=== PATIENT | female | born 1935 | race Caucasian/White ===

== ENCOUNTER → 2017-03-23 | Outpatient (CLI) | payer MEDICARE ==
[~2017-03-23] VITALS: Ht 154.9 cm; Wt 52.6 kg
[~2017-03-23] MED LIST: ASP81TEC PO; ASPI-983 PO; CATHETER FLUSH 10 ML SYR IV PRN; CEFU500T5 PO; CLOP75TA28 PO; DIGO125T PO; DILT120T3 PO; DILT180C PO; ENXP80I.8 SC; LISI40TA PO; METF500T4 PO; PRAV40TA2 PO; REGADENOSON 0.4 MG/5 ML SYR (LEXISCAN) IV ONE; SIMV20TA3 PO; WRF2T PO
[2017-03-23 09:16] VITALS: BP 181/90
--- NOTE | 2017-03-23 13:21 | STRESS TEST ---
DATE OF SERVICE: 03/23/2017 LEXISCAN MYOVIEW STRESS TEST REFERRING PHYSICIAN: Dr. Michaelle Rivas Baseline heart rate is 65, baseline blood pressure 181/90. Baseline EKG is ventricular paced rhythm alternating with sinus rhythm and right bundle branch block. In summary, the patient was injected with 10.14 mCi of technetium-99 Myoview and the resting images were obtained. Then the patient received 0.4 mg of Lexiscan followed by 32.1 mCi of technetium-99 Myoview. Throughout the test, EKG was showing nondiagnostic changes. The resting and stress images were reviewed and compared in the short axis, horizontal long axis and vertical long axis views. Review of the images showed breast attenuation with no significant ischemic. SSS is 4. SDS 2. TID value is increased of 1.23. On the gaited images, the left ventricle appeared to be normal size. Calculated ejection fraction is 64%. CONCLUSION: 1. The patient tolerated Lexiscan well. 2. Baseline EKG changes with alternating sinus rhythm and ventricular paced rhythm. 3. Transient ischemic dilatation with TID value 1.23. 4. Breast attenuation with no significant ischemia. 5. Normal left ventricular size with normal contractility. Calculated ejection fraction 64%. Job ID: [id number] DocumentID: [id number] Dictated Date: 03/23/2017 12:09:15 Fiberglass Auto Body Repairer Date: 03/23/2017 12:53:42 Dictated By: AJ CONKLIN MD
== END ==
LOC: CARD 08:03
PROVIDERS: ATTEND Internal Medicine Cardiovascular Disease
DX: I35.1 Nonrheumatic aortic (valve) insufficiency (principal); E78.2 Mixed hyperlipidemia; I10 Essential (primary) hypertension; I27.2 Other secondary pulmonary hypertension; I49.5 Sick sinus syndrome; E11.9 Type 2 diabetes mellitus without complications
CPT/HCPCS: 78452; 93017

== ENCOUNTER 2017-04-01 06:55 | Day surgery (SDC) | payer MEDICARE ==
[~2017-04-01] VITALS: Ht 154.9 cm; Wt 52.5 kg
[2017-04-01] VITALS (10 sets, daily range): BP systolic 134–177; BP diastolic 69–96
[~2017-04-01 06:55] MED LIST changes: -ASPI-983 PO; -CATHETER FLUSH 10 ML SYR IV PRN; -CLOP75TA28 PO; -DILT120T3 PO; -LISI40TA PO; -METF500T4 PO; -PRAV40TA2 PO; -REGADENOSON 0.4 MG/5 ML SYR (LEXISCAN) IV ONE
[2017-04-01] MEDS ORDERED: LIDOCAINE 1% INJ 20 ML (XYLOCAINE) VIAL ONE (07:03)
[2017-04-01] MEDS ORDERED: NS IV 1000 ML 1,000 ML ONE (07:03)
[2017-04-01] MEDS ORDERED: HEParin (CATH LAB) 2,000 ML IV ONE (07:04)
[2017-04-01] MEDS ORDERED: NS IV 1000 ML 1,000 ML IV SCH (07:30)
[2017-04-01 07:37] LABS: BILIRUBIN,URINE NEGATIVE (NEGATIVE); KETONES,URINE NEGATIVE (NEGATIVE); LEUKOCYTE ESTERASE ,URINE 2+ (NEGATIVE); NITRITE,URINE NEGATIVE (NEGATIVE); PH,URINE 6.5 (5-9); PROTEIN,URINE 2+ (NEGATIVE); UROBILINOGEN,URINE NORMAL (NORMAL)
[2017-04-01 07:40] LABS: MEAN PLATELET VOLUME 10.4 FL (7.4-10.4); RED BLOOD COUNT 4.78 10^6/uL (4.35-5.85); RED CELL DISTRIBUTION WIDTH 13.7 % (10.0-14.5); WHITE BLOOD COUNT 8.4 10^3/uL (4.3-11.0)
[2017-04-01 07:47] LABS: INR 1.3 (0.8-1.4); PROTHROMBIN TIME PATIENT 16.1 SEC (12.2-14.7)
[2017-04-01 07:55] LABS: SQUAMOUS EPITHELIAL CELL,UR 0-2 /HPF
[2017-04-01 07:56] LABS: ALBUMIN 4.3 G/DL (3.2-4.5); CALCIUM 9.4 MG/DL (8.5-10.1); CREATININE SERUM 1.09 MG/DL (0.60-1.30); TOTAL PROTEIN 6.9 G/DL (6.4-8.2)
[2017-04-01] MEDS ORDERED: LISI40TA PO (07:57)
[2017-04-01] MEDS ORDERED: METF500T4 PO (07:57)
[2017-04-01] MEDS ORDERED: DILT120T3 PO (07:57)
[2017-04-01] MEDS ORDERED: PRAV40TA2 PO (07:57)
[2017-04-01] MEDS ORDERED: MIDAZOLAM 5 MG/5 ML (VERSED) VIAL ONE (07:58)
[2017-04-01] MEDS ORDERED: fentaNYL INJECTION 100 MCG/2 ML AMP ONE (07:58)
--- NOTE | 2017-04-01 08:18 | Cardiac Procedure Note-CS/ASA ---
Pre-Procedure Note Pre-Op Procedure Note H&P Reviewed The H&P was reviewed, patient examined and no changes noted. Date H&P Reviewed: April 01, 2017 Time H&P Reviewed: 08:17 Conscious Sedation Pre-Proced Time Reviewed: 08:18 ASA Class: 3 Airway Mallampati Classification: ([place] appropriate class) I. II. III, IV Lungs Heart ASA score ASA 1: a normal healthy patient ASA 2: a patient with a mild systemic disease (mid diabetes, controlled hypertension, obesity x ASA 3: a patient with a severe systemic disease that limits activity (angina , COPD, prior Myocardial infarction) ASA 4: a patient with an incapacitating disease that is a constant threat to life (CHF, renal failure) ASA 5: a moribund patient not expected to survive 24 hrs. (ruptured aneurysm) ASA 6: a declared brain patient whose organs are being harvested. For emergent operations, add the letter E after the classification Grade 3 Sedation Plan: Analgesia, Amnesia, Plan communicated to team members, Discussed options with patient/fam, Discussed risks with patient/fam Note The patient is an appropriate candidate to undergo the planned procedure, sedation, and anesthesia. The patient immediately re-assessed prior to indication. AJ CONKLIN MD April 01, 2017 08:18
[2017-04-01] MEDS ORDERED: HEParin 1000 UNIT/ML (10ML VIAL) FOR BOLUS ONE (08:24)
[2017-04-01] MEDS ORDERED: NITROGLYCERIN DRIP 25 MG/D5W 250 ML IV ONE (08:25)
--- NOTE | 2017-04-01 08:31 | Diagnostic Imaging Report ---
INDICATION: Aortic insufficiency Frontal chest obtained at 733 hrs am, and compared with 08/19/10. Cardiomegaly is noted, with significant increase in cardiac size compared to the prior study. The aorta is mildly tortuous. Pacemaker device is unchanged. There is no acute infiltrate or pneumothorax or pleural fluid. IMPRESSION: Cardiomegaly is present which has significantly increased compared with 08/19/10. There is no acute infiltrate or pneumothorax or pleural fluid. Pacemaker is unchanged. Dictated by: Dictated on workstation # [id number]
[2017-04-01] MEDS ORDERED: CLOPIDOGREL 300 MG (PLAVIX) TABLET PO ONE (08:38)
[2017-04-01] MEDS ORDERED: ASPIRIN 81 MG CHEW (CHILDREN'S ASA) ONE ×2 (08:39→08:48)
[2017-04-01] MEDS ORDERED: PATIENT MAY USE OWN MEDS, ALL PO SCH (08:45)
[2017-04-01] MEDS ORDERED: DIGOXIN 0.125 MG (LANOXIN) TAB PO SCH (09:00)
[2017-04-01] MEDS: NS IV 1000 ML 1,000 ML IV SCH ×2 (09:20→19:10)
[2017-04-01] MEDS ORDERED: DILTIAZEM 120 MG (CARDIZEM CD) CAP PO SCH (09:58)
[2017-04-01] MEDS ORDERED: lisINopril 20 MG (ZESTRIL) TAB PO SCH (10:00)
[2017-04-01] MEDS: CLOPIDOGREL 75 MG (PLAVIX) TABLET PO SCH (14:58)
[2017-04-01] MEDS: ASPIRIN E.C. 81 MG (ECOTRIN) TAB PO SCH (15:02)
[2017-04-01] MEDS: DILTIAZEM 120 MG (CARDIZEM CD) CAP PO SCH (15:10)
[2017-04-01] MEDS: LISINOPRIL 40MG TABLET PO SCH (15:10)
[2017-04-01] MEDS ORDERED: warFARin 2 MG (COUMADIN) TAB PO SCH (18:00)
--- NOTE | 2017-04-01 18:23 | CARDIAC CATHETERIZATION ---
DATE OF SERVICE: 04/01/2017 CARDIAC CATHETERIZATION REFERRING PHYSICIAN: Dr. Michaelle Rivas. BRIEF HISTORY: The patient is an 81-year-old lady with history of coronary artery disease, sick sinus syndrome, aortic valve regurgitation. She has an abnormal stress test with transient ischemic dilatation. She was scheduled for left heart catheterization, possible PTCA. PROCEDURE NOTE: After explaining the procedure to the patient, all pros or cons were explained, all questions were answered. The patient signed a consent, then she was placed on the cardiac catheterization laboratory. Right groin was prepped in sterile fashion. Local anesthesia applied to the right groin. A 6-Macedonian sheath was placed in the right femoral artery. Combination of right and left Connor catheter were used to access the right and left coronary system. Multiple views were obtained. Pigtail catheter advanced to the left ventricular cavity. Pressure was measured. Pullback LV to aorta was done. At that time, I decide to proceed with percutaneous intervention of the right coronary artery. The patient receive 5000 unit of heparin. FR guide was advanced to the right coronary artery. BMW wire was advanced in the right coronary artery. The patient has 95% stenosis in the mid right coronary artery. Pre-dilatation using 3.0 x 15 mm Emerge balloon. Then I positioned XIENCE Alpine stent 3.5 x 18 mm carefully, expanded to 3.6 mm under 12 atmosphere. Angiogram showed excelled results, no residual stenosis. At the end of the procedure, sheath was removed. Mynx device deployed, hemostasis achieved. TOTAL CONTRAST USED: 55 mL. TOTAL RADIATION DOSE: 254 mGy. FINDINGS: HEMODYNAMICS: LV pressure 121/9 and diastolic pressure of 9. Aortic pressure 121/47, mean of 73, no significant gradient across the aortic valve. ANATOMY: 1. Left main coronary artery is moderate in size with 40% stenosis in the distal left main, nonobstructive disease. 2. Left anterior descending artery is moderate in size with slow flow in the LAD due to small vessel disease. 3. Left circumflex artery is moderate in size with mild disease, nonobstructive disease. 4. Right coronary artery has eccentric plaque with 95% stenosis in the mid right coronary artery. Successful balloon angioplasty, then stent deployment of XIENCE Alpine drug eluting stent 3.5 x 15 mm expanded to 3.6 mm with excellent results. No residual stenosis. There is proximal right coronary artery 30% stenosis and distal 30% stenosis, nonobstructive disease that is treated medically. 5. Left ventriculogram was not done. Pressure was measured. The patient has normal LVEDP. IN CONCLUSION: 1. A 95% stenosis in the mid right coronary artery, successful balloon angioplasty, the stenting using XIENCE Alpine stent 3.5 x 15 mm expanded to 3.6 mm with excellent results. The proximal and distal right coronary artery has 30% stenosis, nonobstructive disease. 2. A 40% stenosis in the distal left main, nonobstructive disease. 3. Small vessel disease in the LAD with slow flow, nonobstructive disease. 4. Normal left ventricular end diastolic pressure. DISCUSSION AND RECOMMENDATION: The patient was bolused with aspirin and Plavix. She will continue on triple medication with aspirin, Plavix and Coumadin at this point. FINAL DIAGNOSES: 1. Coronary artery disease. 2. Sick sinus syndrome. 3. Hypertension. 4. Hyperlipidemia. Job ID: [id number] DocumentID: [id number] Dictated Date: 04/01/2017 08:42:52 Investor Relations Analyst Date: 04/01/2017 12:32:32 Dictated By: AJ CONKLIN MD
[2017-04-01] MEDS ORDERED: PRAVASTATIN 40 MG PO SCH (21:00)
[2017-04-02] VITALS: BP 160/81
[2017-04-02 03:48] LABS: MEAN PLATELET VOLUME 10.8 FL (7.4-10.4); RED BLOOD COUNT 3.88 10^6/uL (4.35-5.85); RED CELL DISTRIBUTION WIDTH 13.5 % (10.0-14.5); WHITE BLOOD COUNT 7.4 10^3/uL (4.3-11.0)
[2017-04-02 04:00] VITALS: BP 157/81
[2017-04-02 04:02] LABS: ANION GAP 9 MMOL/L (5-14); BLOOD UREA NITROGEN 13 MG/DL (7-18); BUN/CREATININE RATIO 16; CALCIUM 8.5 MG/DL (8.5-10.1); CARBON DIOXIDE 21 MMOL/L (21-32); CHLORIDE 109 MMOL/L (98-107); CREATININE SERUM 0.81 MG/DL (0.60-1.30); GFR ESTIMATED > 60; GLUCOSE 155 MG/DL (70-105); POTASSIUM 3.8 MMOL/L (3.6-5.0); SODIUM 139 MMOL/L (135-145)
[2017-04-02] MEDS: NS IV 1000 ML 1,000 ML IV SCH (04:57)
[2017-04-02 08:00] VITALS: BP 166/70
[2017-04-02] MEDS ORDERED: CLOP75TA28 PO (08:00)
[2017-04-02] MEDS ORDERED: ASPI-983 PO (08:00)
--- NOTE | 2017-04-02 08:01 | Discharge Inst-Post CATH ---
Discharge Inst-CATH Post Cardiac Cath D/C Inst Follow Up/Plan Hold metformin for 48 hours PT/INR next week Appointment with Dr. Comer's office in 2-4 weeks CARDIAC CATH DISCHARGE INSTRUCTIONS *Hold Metformin for 48 hours post heart cath. ACTIVITY * Go Home directly and rest. * Limit activity of the leg (or wrist if it was used) for 7 days including aerobics, swimming, jogging, bicycling, etc. * Restrict stair-climbing for 7 days if possible, if not, climb up with your non -cath leg, then bring together on the same step. * Avoid lifting, pushing, pulling or excessive movement of the affected extremity for 7 days. * Customary sexual activity may be resumed after 2 days-use caution not to use a position that strains or causes pain to the affected extremity. * No driving for 24 hours. * NO SMOKING. * Avoid straining for bowel movements for 7 days. * Gentle walking on level ground is allowed. * Returning to work will depend on the type of procedure and the results. Your doctor will discuss this with you. CALL YOUR DOCTOR FOR ANY OF THE FOLLOWING: *If bleeding from the puncture site occurs- Apply gentle pressure to site with clean cloth and call your doctor or EMS. * If a knot or lump forms under the skin, increases in size, or causes pain. * If bruising appears to be worsening or moving further down your leg instead of disappearing. * Temperature above 101 F. CARE OF YOUR GROIN INCISION; * Bruising or purple discoloration of the skin near the puncture site is common. * You may shower only, no bathtub bathing for 5 days. Be careful to avoid slipping as your leg may feel stiff. * If a closure device was used on your femoral artery, please see the attached guide regarding care of the device and your leg. * REMOVE the dressing from your groin the next day after your procedure in the shower. CARE OF YOUR WRIST INCISION; * Bruising or purple discoloration of the skin near the puncture site is common. * You may shower. * DO NOT submerge wrist. * Remove dressing in 24 hours. AJ COMER MD April 02, 2017 08:01
--- NOTE | 2017-04-02 08:03 | Cardiology Progress Note ---
Subjective Subjective/Events-last exam patient is feeling well, groin is healing well. Denied any chest pain or shortness of breath Review of Systems General: No Chills, No Night Sweats, No Fatigue, No Malaise, No Appetite, No Other HEENT: No Head Aches, No Visual Changes, No Eye Pain, No Ear Pain, No Dysphasia , No Sinus Congestion, No Post Nasal Drip, No Sore Throat, No Other Pulmonary: No Dyspnea, No Cough, No Pleuritic Chest Pain, No Other Cardiovascular: No: Chest Pain, Edema, Lt Headedness, Orthopnea, Other, Palpitations, Paroxysmal Noc. Dyspnea Objective-Cardiology Exam Last Set of Vital Signs Vital Signs 04/02/17 04:00 Temp 98.6 Pulse 65 Resp 18 B/P (MAP) 157/81 Pulse Ox 93 O2 Delivery Room Air Capillary Refill : Less Than 3 Seconds I&O Intake and Output 04/02/17 00:00 Intake Total 1480 ml Balance 1480 ml Intake Oral 480 ml IV Total 1000 ml # Voids 2 General: Alert, Oriented X3, Cooperative HEENT: Atraumatic, PERRLA Neck: Supple, No JVD, No Thyromegaly Lungs: Clear to Auscultation, Normal Air Movement Heart: Regular Rate, Normal S1, Normal S2, No Murmurs Abdomen: Normal Bowel Sounds, Soft, No Tenderness, No Hepatosplenomegaly, No Masses Extremities: No Clubbing, No Cyanosis, No Edema, Normal Pulses, No Tenderness/ Swelling Skin: No Rashes, No Breakdown, No Significant Lesion Neuro: Normal Gait, Normal Speech, Strength at 5/5 X4 Ext, Normal Tone, Sensation Intact Psych/Mental Status: Mental Status NL, Mood NL Results Lab Laboratory Tests 04/02/17 03:35 A/P-Cardiology Admission Diagnosis coronary artery disease Hypertension Hyperlipidemia Diabetes mellitus Assessment/Plan coronary artery disease status post stent to the right coronary artery Hypertension Hyperlipidemia Diabetes mellitus Patient was educated in length about condition, discussed ALL treatment, educated in length about taking aspirin, Plavix and Coumadin at the same time, monitoring INR closely. Holding metformin for 48 hours. Educated about post catheter care AJ CONKLIN MD April 02, 2017 08:03
[2017-04-02] MEDS: LISINOPRIL 40MG TABLET PO SCH (08:33)
[2017-04-02] MEDS: ASPIRIN E.C. 81 MG (ECOTRIN) TAB PO SCH (08:33)
[2017-04-02] MEDS: CLOPIDOGREL 75 MG (PLAVIX) TABLET PO SCH (08:33)
[2017-04-02] MEDS: DILTIAZEM 120 MG (CARDIZEM CD) CAP PO SCH (08:34)
[2017-04-02] MEDS ORDERED: DIGOXIN 0.125 MG (LANOXIN) TAB PO SCH (09:00)
[2017-04-02 09:10] VITALS: BP 166/70
== END 2017-04-02 09:15 | disposition home or self-care (01) ==
LOC: CATH 06:55 → ICU 09:20 → CATH 04-02 09:15
PROVIDERS: ATTEND Internal Medicine Cardiovascular Disease
DX: R94.39 Abnormal result of other cardiovascular function study (principal); I25.10 Atherosclerotic heart disease of native coronary artery without angina pectoris; I49.5 Sick sinus syndrome; I35.1 Nonrheumatic aortic (valve) insufficiency; I10 Essential (primary) hypertension; I48.0 Paroxysmal atrial fibrillation; E11.9 Type 2 diabetes mellitus without complications; E78.5 Hyperlipidemia, unspecified; Z79.01 Long term (current) use of anticoagulants; Z79.899 Other long term (current) drug therapy; Z79.84 Long term (current) use of oral hypoglycemic drugs; Z95.0 Presence of cardiac pacemaker
CPT/HCPCS: 36415; 71010; 80048; 80053; 80061; 81000; 85027; 85347; 85610; 85730; 87081; 87088; 93005; 93458

== ENCOUNTER 2017-04-04 21:02 | Emergency (ER) | payer MEDICARE ==
[~2017-04-04] VITALS: Ht 154.9 cm; Wt 52.0 kg
[~2017-04-04 21:02] MED LIST changes: +ASPI-983 PO; +CLOP75TA28 PO; +DILT120T3 PO; +LISI40TA PO; +METF500T4 PO; +PRAV40TA2 PO
--- NOTE | 2017-04-04 21:28 | ED Lower Extremity ---
General Stated Complaint: RECENT HEART SURGERY - SWELLING ON AREA Source: patient Exam Limitations: no limitations History of Present Illness Time seen by provider: 21:26 Initial Comments To ER with bruising and swelling to the right groin. Patient had an outpatient cardiac catheterization done here on . She was discharged from the hospital on . She is on Plavix, aspirin, warfarin. She was instructed to come back to the hospital for increasing bruising. She denies any abdominal pain, palpitations shortness of breath or lightheadedness. However, she does have some bruising to the medial aspect of the right thigh that terminated at the mid right thigh yesterday. Today it extends distally down towards the knee. Onset: last week Severity: moderate Pain/Injury Location: right knee Method of Injury: other (cardiac catheterization) Allergies and Home Medications Allergies Coded Allergies: Sulfa (Sulfonamide Antibiotics) (Verified Allergy, Unknown, 04/01/17) Home Medications Aspirin 81 Mg Tablet.dr, 81 MG PO DAILY, #100 Ref 3 Prescribed by: AJ CONKLIN on 04/02/17 0800 Clopidogrel Bisulfate 75 Mg Tablet, 75 MG PO DAILY, #30 Ref 6 Prescribed by: AJ CONKLIN on 04/02/17 0800 Digoxin 125 Mcg Tablet, 1 EACH PO DAILY, (Reported) Diltiazem HCl 120 Mg Tablet, 120 MG PO DAILY, (Reported) Lisinopril 40 Mg Tablet, 40 MG PO DAILY, (Reported) Pravastatin Sodium 40 Mg Tablet, 40 MG PO HS, (Reported) Warfarin Sod 2 Mg Tab, 2 MG PO DAILY@18, (Reported) Constitutional: see HPI EENTM: see HPI Respiratory: no symptoms reported Cardiovascular: no symptoms reported Genitourinary: no symptoms reported Musculoskeletal: see HPI Skin: see HPI Psychiatric/Neurological: No Symptoms Reported Past Ywswgok-Mlwzoa-Ywlyxx Hx Patient Social History Recent Foreign Travel: No Contact w/Someone Who Travel: No Surgeries HX Surgeries: Yes (PACEMAKER,APPY,OVARIAN CYST,CORNEA TRANSPLANT) Respiratory Hx Respiratory Disorders: No Cardiovascular Hx Cardiac Disorders: No (recently placed on simvastatin) Neurological Hx Neurological Disorders: No Reproductive System Hx Reproductive Disorders: No Genitourinary Hx Genitourinary Disorders: No Gastrointestinal Hx Gastrointestinal Disorders: No Musculoskeletal Hx Musculoskeletal Disorders: No Endocrine Hx Endocrine Disorders: No HEENT HX ENT Disorders: No Psychosocial Hx Psychiatric Problems: No Blood Transfusions Hx Blood Disorders: No Physical Exam Vital Signs Capillary Refill : General Appearance: WD/WN, no apparent distress HEENT: PERRL/EOMI, normal ENT inspection Neck: non-tender, full range of motion Respiratory: no respiratory distress, no accessory muscle use Gastrointestinal: normal bowel sounds, non tender, soft Hips: bilateral hip non-tender, bilateral hip normal inspection, bilateral hip normal range of motion Legs: right leg pain, right leg other (hematoma palpable in the right groin. I am able to palpate the small artery but I do not palpate a thrill. There is bruising that extends down the medial aspect of the right leg terminating just inferior to the medial aspect of the right knee.) Knees: bilateral knee non-tender, bilateral knee normal inspection, bilateral knee normal range of motion Ankles: bilateral ankle non-tender, bilateral ankle normal inspection, bilateral ankle normal range of motion Feet: bilateral foot non-tender, bilateral foot normal inspection, bilateral foot normal range of motion Neurologic/Psychiatric: alert, normal mood/affect, oriented x 3 Skin: normal color, warm/dry Progress/Results/Core Measures Results/Orders Lab Results Laboratory Tests Test 04/04/17 21:25 Range/Units White Blood Count 8.2 4.3-11.0 10^3/uL Red Blood Count 3.79 L 4.35-5.85 10^6/uL Hemoglobin 11.3 L 11.5-16.0 G/DL Hematocrit 35 35-52 % Mean Corpuscular Volume 92 80-99 FL Mean Corpuscular Hemoglobin 30 25-34 PG Mean Corpuscular Hemoglobin Concent 32 32-36 G/DL Red Cell Distribution Width 13.7 10.0-14.5 % Platelet Count 244 130-400 10^3/uL Mean Platelet Volume 10.4 7.4-10.4 FL Neutrophils (%) (Auto) 63 42-75 % Lymphocytes (%) (Auto) 24 12-44 % Monocytes (%) (Auto) 11 0-12 % Eosinophils (%) (Auto) 1 0-10 % Basophils (%) (Auto) 1 0-10 % Neutrophils # (Auto) 5.1 1.8-7.8 X 10^3 Lymphocytes # (Auto) 2.0 1.0-4.0 X 10^3 Monocytes # (Auto) 0.9 0.0-1.0 X 10^3 Eosinophils # (Auto) 0.1 0.0-0.3 10^3/uL Basophils # (Auto) 0.0 0.0-0.1 10^3/uL Prothrombin Time 16.9 H 12.2-14.7 SEC INR Comment 1.4 0.8-1.4 My Orders Orders - SOBIA HERNANDEZ APRN Cbc With Automated Diff (04/04/17 21:24) Protime With Inr (04/04/17 21:24) Us Right Low Ext [id number] (04/04/17 21:24) Departure Communication Progress Notes 2232-I did discuss the case with Dr. Conklin. He will see the patient Thursday morning in his office and likely discussed the case with Dr. Tay from interventional radiology for treatment of this. Impression Impression: Primary Impression: Ecchymosis Additional Impression: Pseudoaneurysm of femoral artery Disposition: HOME, SELF-CARE Condition: Stable Departure-Patient Inst. Decision time for Depature: 21:28 Referrals: AJ CONKLIN MD, LISA A MD (PCP/Family) Primary Care Physician Patient Instructions: NO INSTRUCTIONS GIVEN Add. Discharge Instructions: 1. No lifting or straining 2. Return to ER for any concerns 3. Call Dr. Conklin Thursday at 8 a.m. to make an appointment to be seen. Return to ER for any concerns. Copy Copies To 1: AJ CONKLIN MD, PETER J APRN April 04, 2017 21:28
[2017-04-04 21:43] LABS: BASOPHILS % (AUTO) 1 % (0-10); EOSINOPHILS # (AUTO) 0.1 10^3/uL (0.0-0.3); EOSINOPHILS % (AUTO) 1 % (0-10); LYMPHOCYTES % (AUTO) 24 % (12-44); MEAN CORPUSCULAR HEMOGLOBIN 30 PG (25-34); MEAN CORPUSCULAR HGB CONC 32 G/DL (32-36); MEAN CORPUSCULAR VOLUME 92 FL (80-99); MEAN PLATELET VOLUME 10.4 FL (7.4-10.4); MONOCYTES # (AUTO) 0.9 X 10^3 (0.0-1.0); MONOCYTES % (AUTO) 11 % (0-12); NEUTROPHILS # (AUTO) 5.1 X 10^3 (1.8-7.8); NEUTROPHILS % (AUTO) 63 % (42-75); PLATELET COUNT 244 10^3/uL (130-400); RED BLOOD COUNT 3.79 10^6/uL (4.35-5.85); RED CELL DISTRIBUTION WIDTH 13.7 % (10.0-14.5); WHITE BLOOD COUNT 8.2 10^3/uL (4.3-11.0)
[2017-04-04 21:54] LABS: INR 1.4 (0.8-1.4); PROTHROMBIN TIME PATIENT 16.9 SEC (12.2-14.7)
[2017-04-04 22:27] VITALS: BP 172/74
--- NOTE | 2017-04-05 08:12 | Diagnostic Imaging Report ---
INDICATION: 3 days status post heart catheterization. Pulsatile mass. Grayscale imaging as well as color Doppler velocity and spectral waveform analysis of the right groin was performed. The right common femoral artery and vein are patent. There is a 2 x 2.5 cm pseudoaneurysm arising off of the right common femoral artery. There is a similar sized nonvascular area just inferior to this consistent with either a thrombosed pseudoaneurysm or hematoma. IMPRESSION: There is a pseudoaneurysm in the right groin. Dictated by: Dictated on workstation # [id number]
== END 2017-04-04 22:27 | disposition home or self-care (01) ==
LOC: EDUNIT# 21:02 → ER 21:05
DX: I72.4 Aneurysm of artery of lower extremity (principal); Z79.82 Long term (current) use of aspirin; Z79.02 Long term (current) use of antithrombotics/antiplatelets; Z79.01 Long term (current) use of anticoagulants; Z79.899 Other long term (current) drug therapy; Z95.0 Presence of cardiac pacemaker; Z98.890 Other specified postprocedural states
CPT/HCPCS: 36415; 85025; 85610; 93926

== ENCOUNTER 2017-04-06 12:15 | Outpatient (CLI) | payer MEDICARE ==
[2017-04-06] VITALS (10 sets, daily range): BP systolic 112–152; BP diastolic 61–80
[~2017-04-06] VITALS: Ht 154.9 cm; Wt 52.0 kg
[2017-04-06] MEDS ORDERED: LIDOCAINE 1% INJ 20 ML (XYLOCAINE) VIAL INJ ONE (12:30)
[2017-04-06] MEDS ORDERED: THROMBIN SPRAY KIT 5,000 UNIT VIAL EXT ONE (12:30)
--- NOTE | 2017-04-06 13:26 | Pre-Procedure Progress Note ---
Pre-Procedure Progress Note H&P Reviewed The H&P was reviewed, patient examined and no changes noted. Date H&P Reviewed: April 06, 2017 Time H&P Reviewed: 13:00 Pre-Procedure Diagnosis: Right groin pseudoanurysm CRISS MURPHY MD April 06, 2017 13:26
--- NOTE | 2017-04-06 13:48 | Discharge Instructions ---
Discharge Instructions Home Medicaitons Changes Resume coumadin after 5 days ( ). CRISS MURPHY MD April 06, 2017 13:48
--- NOTE | 2017-04-06 16:37 | Diagnostic Imaging Report ---
Ultrasound-guided thrombin injection for groin pseudoaneurysm. INDICATION: Right common femoral artery pseudoaneurysm post catheterization. Physical examination reveals ecchymosis and palpable pulsatile pseudoaneurysm in the right groin. The patient weak pedal pulses. Consent: The procedure is explained to the patient with risks and benefits including thrombus embolization into the distal vessels in the leg. The patient questions were answered and informed consent is obtained. The patient was informed of the possibility of distal embolization of thrombin or clot being the main potential complication of this procedure. In addition, possibility of reperfusion of this the pseudoaneurysm was also discussed. ANESTHESIA: 1% lidocaine GUIDANCE: Ultrasound FINDINGS: Preliminary ultrasound examination of the groin demonstrates a pseudoaneurysm measuring 2.2 cm in size. There is to and fro typical flow pattern seen with a narrow neck. PROCEDURE: After sterile preparation and draping, and utilizing ultrasound guidance an appropriate approach is selected away from the neck of the aneurysm. 1% lidocaine is utilized. A 25-gauge needle is utilized for introduction underlying ultrasound guidance into the pseudoaneurysm cavity away from the neck communication with the artery. Imaging demonstrating the location of the needle tip is documented. Slow injection of thrombin is performed under live ultrasound color Doppler visualization. Prompt thrombosis filling the pseudoaneurysm cavity is seen. Injection continued until complete thrombosis seen. Total amount of 200 international units of bovine thrombin. The underlying right common femoral artery appear similarly patent after the procedure with color Doppler flow. The patient tolerated the procedure well. There is no change in the distal pulses. No immediate complications. IMPRESSION: Successful ultrasound-guided thrombin injection of right groin pseudoaneurysm, with complete obliteration of its lumen with thrombus demonstrated. Followup vascular ultrasound within the following week is planned to rule out reperfusion of the pseudoaneurysm. Also, after discussing with Dr. Comer who agrees with the plan, Coumadin will be held for 5 days to decrease likelihood of reperfusion of the pseudoaneurysm. Dictated by: Dictated on workstation # [id number]
== END 2017-04-06 17:00 | disposition home or self-care (01) ==
LOC: RAD 12:15 → SURG 13:40 → RAD 17:00
PROVIDERS: ATTEND Internal Medicine Cardiovascular Disease
DX: I72.8 Aneurysm of other specified arteries (principal)
CPT/HCPCS: 36002

== ENCOUNTER 2017-04-13 07:04 | Day surgery (SDC) | payer MEDICARE ==
[2017-04-13] VITALS (17 sets, daily range): BP systolic 142–176; BP diastolic 64–87
[~2017-04-13] VITALS: Ht 154.9 cm; Wt 51.7 kg
[~2017-04-13 07:04] MED LIST changes: -CEFU250T80 PO; -DIGO125T18 PO; -DILT120C PO; -L.AC1CAP6 PO; -METO-274 PO; -PRED5DRO17 OD; -WARF6TAB6 PO
[2017-04-13] MEDS ORDERED: NS IV 1000 ML 1,000 ML ONE (07:18)
[2017-04-13] MEDS ORDERED: LIDOCAINE 1% INJ 20 ML (XYLOCAINE) VIAL ONE (07:18)
[2017-04-13] MEDS ORDERED: HEParin (CATH LAB) 1,000 ML IV ONE (07:18)
[2017-04-13] MEDS ORDERED: NS IV 1000 ML 1,000 ML IV SCH ×3 (07:23→10:53)
[2017-04-13 07:50] LABS: RED BLOOD COUNT 4.08 10^6/uL (4.35-5.85); WHITE BLOOD COUNT 7.3 10^3/uL (4.3-11.0)
[2017-04-13 07:59] LABS: BILIRUBIN,URINE NEGATIVE (NEGATIVE); KETONES,URINE NEGATIVE (NEGATIVE); LEUKOCYTE ESTERASE ,URINE 1+ (NEGATIVE); NITRITE,URINE NEGATIVE (NEGATIVE); PH,URINE 6.5 (5-9); PROTEIN,URINE NEGATIVE (NEGATIVE); UROBILINOGEN,URINE NORMAL (NORMAL)
[2017-04-13 08:02] LABS: INR 1.1 (0.8-1.4); PROTHROMBIN TIME PATIENT 13.7 SEC (12.2-14.7)
--- NOTE | 2017-04-13 08:02 | Cardiac Procedure Note-CS/ASA ---
Pre-Procedure Note Pre-Op Procedure Note H&P Reviewed The H&P was reviewed, patient examined and no changes noted. Date H&P Reviewed: April 13, 2017 Time H&P Reviewed: 08:02 Conscious Sedation Pre-Proced Time Reviewed: 08:02 ASA Class: 3 Airway Mallampati Classification: ([place] appropriate class) I. II. III, IV Lungs Heart ASA score ASA 1: a normal healthy patient ASA 2: a patient with a mild systemic disease (mid diabetes, controlled hypertension, obesity x ASA 3: a patient with a severe systemic disease that limits activity (angina , COPD, prior Myocardial infarction) ASA 4: a patient with an incapacitating disease that is a constant threat to life (CHF, renal failure) ASA 5: a moribund patient not expected to survive 24 hrs. (ruptured aneurysm) ASA 6: a declared brain patient whose organs are being harvested. For emergent operations, add the letter E after the classification Grade 3 Sedation Plan: Analgesia, Amnesia, Plan communicated to team members, Discussed options with patient/fam, Discussed risks with patient/fam Note The patient is an appropriate candidate to undergo the planned procedure, sedation, and anesthesia. The patient immediately re-assessed prior to indication. AJ CONKLIN MD April 13, 2017 08:02
[2017-04-13 08:09] LABS: WBC,URINE 0-2 /HPF
[2017-04-13 08:13] LABS: CALCIUM 9.7 MG/DL (8.5-10.1); CREATININE SERUM 0.91 MG/DL (0.60-1.30); POTASSIUM 4.2 MMOL/L (3.6-5.0); TOTAL PROTEIN 6.5 G/DL (6.4-8.2)
[2017-04-13] MEDS ORDERED: BACITRACIN INJECTION 50,000 UNIT, SODIUM CHLORIDE 0.9% IRRIGATIO 500 ML IR ONE ×4 (08:15→09:00)
--- NOTE | 2017-04-13 08:34 | Diagnostic Imaging Report ---
INDICATION: Pacemaker generator replacement Comparison study: Chest from 04/01/17. FINDINGS: Frontal view of the chest demonstrates stable cardiomegaly and a cardiac pacemaker. A retrocardiac density consistent with a hiatal hernia is again identified. Lungs are clear. No effusion or pneumothorax is present. IMPRESSION: Stable cardiomegaly and hiatal hernia. Dictated by: Dictated on workstation # [id number]
[2017-04-13] MEDS ORDERED: METO-274 PO (09:11)
[2017-04-13] MEDS ORDERED: METF500T4 PO (09:11)
[2017-04-13] MEDS ORDERED: WARF6TAB6 PO ×2 (09:11→09:14)
[2017-04-13] MEDS ORDERED: DIGO125T18 PO (09:11)
[2017-04-13] MEDS ORDERED: DILT120C PO (09:11)
[2017-04-13] MEDS ORDERED: CLOP75TA28 PO (09:11)
[2017-04-13] MEDS ORDERED: ASPI-983 PO (09:12)
[2017-04-13] MEDS ORDERED: PRED5DRO17 OD (09:12)
[2017-04-13] MEDS ORDERED: MIDAZOLAM 5 MG/5 ML (VERSED) VIAL ONE (09:25)
[2017-04-13] MEDS ORDERED: fentaNYL INJECTION 100 MCG/2 ML AMP ONE (09:25)
[2017-04-13] MEDS ORDERED: ceFAZolin 1,000 MG (ANCEF) VIAL ONE (09:25)
[2017-04-13] MEDS ORDERED: NEO/POLY/BAC (NEOSPORIN) OINT 15 GM TUBE ONE (10:45)
[2017-04-13] MEDS ORDERED: PATIENT MAY USE OWN MEDS, ALL PO SCH (11:00)
--- NOTE | 2017-04-13 13:36 | CARDIAC CATHETERIZATION ---
DATE OF SERVICE: 04/13/2017 PROCEDURE: Pacemaker generator replacement. REFERRING PHYSICIAN: Michaelle Rivas MD BRIEF HISTORY: The patient is a 81-year-old lady with history of coronary artery disease, sick sinus syndrome, paroxysmal atrial fibrillation, who reached elective replacement indicator timing. She was scheduled for pacemaker generator replacement. PROCEDURE NOTE: After explaining the procedure to the patient, all pros and cons were explained, all questions were answered, the patient signed the consent and then she was placed in the cardiac catheterization laboratory. Using aseptic technique, local anesthesia applied, after prepping the skin. A skin incision was made, the pocket was inspected and all skin bleeding was cauterized and the pacemaker generator was removed and I placed a new MRI-safe [employer] device, Advisa-DR, serial number [id number] attached to the leads. Leads were inspected. Then the new pacemaker generator was inserted in the pocket and the skin pocket was closed in 2 layer sutures with no complication. IN CONCLUSION: Successful dual chamber pacemaker generator replacement with no complications. Job ID: [id number] DocumentID: [id number] Dictated Date: 04/13/2017 11:00:13 Sea Air Land Officer Date: 04/13/2017 13:35:58 Dictated By: AJ CONKLIN MD
--- NOTE | 2017-04-13 13:42 | DISCHARGE SUMMARY ---
DATE OF SERVICE: 04/13/2017 FINAL DIAGNOSES: 1. Sick sinus syndrome. 2. Paroxysmal atrial fibrillation. 3. Cardiac pacemaker. 4. Coronary artery disease. PROCEDURE: Pacemaker generator replacement. REFERRING PHYSICIAN: Michaelle Rivas MD BRIEF HISTORY: The patient is an 81-year-old lady with history of coronary artery disease, sick sinus syndrome, paroxysmal atrial fibrillation, reached elective replacement indicator timing. She was scheduled for pacemaker generator replacement. PROCEDURE NOTE: After explaining the procedure to the patient, all pros and cons were explained, all questions were answered, the patient signed the consent, then she was placed in the cardiac catheterization laboratory. Using aseptic technique, local anesthesia applied after prepping the skin. A skin incision was made, the pocket was inspected and all skin bleeding was cauterized. Then the pacemaker generator was removed and I placed a new MRI-safe Medtronic device, Advisa-DR, serial number [id number] attached to the leads. The leads were inspected. Then the new pacemaker generator was inserted in the pocket and the skin pocket was closed in 2 layer sutures with no complications. IN CONCLUSION: Successful dual chamber pacemaker generator replacement with no complications. Job ID: [id number] DocumentID: [id number] Dictated Date: 04/13/2017 11:00:13 Health Education Teacher Date: 04/13/2017 13:42:02 Dictated By: AJ CONKLIN MD
[2017-04-13] MEDS: ceFAZolin INJECTION 1,000 MG in NS (IVPB) 50 ML IV SCH ×2 (14:19→20:53)
[2017-04-13] MEDS ORDERED: WARFARIN 6 MG TAB PO SCH (18:00)
[2017-04-13] MEDS: metFORMIN 500 MG (GLUCOPHAGE) TAB PO SCH (18:32)
[2017-04-13] MEDS ORDERED: meTOprolol SUCCINATE 100 MG (TOPROL XL) TAB PO SCH (21:00)
[2017-04-13] MEDS ORDERED: PRAVASTATIN 40 MG TAB PO SCH (21:00)
[2017-04-14] VITALS (10 sets, daily range): BP systolic 172–201; BP diastolic 76–87
[2017-04-14] MEDS ORDERED: 1/2 NS IV SOLUTION 1,000 ML IV ONE (03:46)
[2017-04-14] MEDS ORDERED: cloNIDine 0.1 MG (CATAPRES) TAB ONE (04:12)
[2017-04-14] MEDS ORDERED: cloNIDine 0.1 MG (CATAPRES) TAB PO ONE (04:30)
[2017-04-14] MEDS: ceFAZolin INJECTION 1,000 MG in NS (IVPB) 50 ML IV SCH (06:26)
[2017-04-14] MEDS: metFORMIN 500 MG (GLUCOPHAGE) TAB PO SCH (06:30)
[2017-04-14] MEDS ORDERED: L.AC1CAP6 PO (08:11)
[2017-04-14] MEDS ORDERED: CEFU250T80 PO (08:11)
--- NOTE | 2017-04-14 08:15 | Cardiology Progress Note ---
Subjective Subjective/Events-last exam patient is sitting in bed, feeling better, had a tough night last night with elevated blood pressure, denied any chest pain, small hematoma at the pacemaker site Objective-Cardiology Exam Last Set of Vital Signs Vital Signs 04/14/17 06:00 Pulse 60 Resp 18 B/P (MAP) 186/78 Pulse Ox 93 Capillary Refill : I&O Intake and Output 04/14/17 00:00 Intake Total 1100 ml Balance 1100 ml IV Total 1100 ml General: Alert, Oriented X3, Cooperative HEENT: Atraumatic, PERRLA Neck: Supple, No JVD, No Thyromegaly Lungs: Clear to Auscultation, Normal Air Movement Heart: Regular Rate, Normal S1, Normal S2, No Murmurs Abdomen: Normal Bowel Sounds, Soft, No Tenderness, No Hepatosplenomegaly, No Masses Extremities: No Clubbing, No Cyanosis, No Edema, Normal Pulses, No Tenderness/ Swelling Skin: No Rashes, No Breakdown, No Significant Lesion Neuro: Normal Gait, Normal Speech, Strength at 5/5 X4 Ext, Normal Tone, Sensation Intact Psych/Mental Status: Mental Status NL, Mood NL A/P-Cardiology Admission Diagnosis sick sinus syndrome Coronary artery disease Hypertension Paroxysmal atrial fibrillation Assessment/Plan sick sinus syndrome, history of permanent pacemaker status post pacemaker generator replacement, patient is on aggressive anticoagulation with antiplatelet Coronary artery disease, clinically stable, continue to monitor Hypertension, restart home medication monitor blood pressure Chronic coumadinization, restart Coumadin Small right groin hematoma, clinically stable Patient at that time with her elevated blood pressure overnight, give her additional dose of clonidine still having elevated blood pressure, patient has been on multiple anti-hypertension medication with good blood pressure control, I instructed her to restart her home medication monitor her blood pressure I will see her next week, evaluate INR next week, restart Coumadin today, continue on aspirin and Plavix. AJ CONKLIN MD April 14, 2017 08:15
[2017-04-14] MEDS ORDERED: DILTIAZEM 120 MG (CARDIZEM CD) CAP PO SCH (09:00)
[2017-04-14] MEDS ORDERED: CLOPIDOGREL 75 MG (PLAVIX) TABLET PO SCH (09:00)
[2017-04-14] MEDS ORDERED: DIGOXIN 0.125 MG (LANOXIN) TAB PO SCH (09:00)
[2017-04-14] MEDS ORDERED: ASPIRIN E.C. 81 MG (ECOTRIN) TAB PO SCH (09:00)
[2017-04-14] MEDS ORDERED: LISINOPRIL 40 MG TAB PO SCH (09:00)
[2017-04-14] MEDS ORDERED: WARFARIN 6 MG TAB PO SCH (18:00)
== END 2017-04-14 09:10 | disposition home or self-care (01) ==
LOC: CATH 07:04 → ICU 11:12 → CATH 04-14 09:10
PROVIDERS: ATTEND Internal Medicine Cardiovascular Disease
DX: Z45.010 Encounter for checking and testing of cardiac pacemaker pulse generator [battery] (principal); I49.5 Sick sinus syndrome; I48.0 Paroxysmal atrial fibrillation; I35.1 Nonrheumatic aortic (valve) insufficiency; I25.10 Atherosclerotic heart disease of native coronary artery without angina pectoris; I10 Essential (primary) hypertension; E78.5 Hyperlipidemia, unspecified; E11.9 Type 2 diabetes mellitus without complications; Z95.5 Presence of coronary angioplasty implant and graft; Z79.01 Long term (current) use of anticoagulants; Z79.899 Other long term (current) drug therapy
CPT/HCPCS: 33228; 36415; 71010; 80053; 80061; 81000; 85027; 85610; 85730; 87081; 93005

== ENCOUNTER → 2017-04-13 | Outpatient (CLI) | payer MEDICARE ==
[~2017-04-13] MED LIST changes: +CEFU250T80 PO; +DIGO125T18 PO; +DILT120C PO; +L.AC1CAP6 PO; +METO-274 PO; +PRED5DRO17 OD; +WARF6TAB6 PO
--- NOTE | 2017-04-13 10:46 | Diagnostic Imaging Report ---
INDICATION: Followup right inguinal pseudoaneurysm repair. COMPARISON: 04/06/2017. DISCUSSION: Limited sonographic evaluation of the right inguinal region was performed with a linear transducer. Images were assessed for grayscale appearance, color and spectral Doppler blood flow. There is a 4.7 x 1.8 x 3.3 cm hematoma noted within the right inguinal region. There is no internal color Doppler blood flow identified. No residual active pseudoaneurysm identified. Normal flow velocities are present within the underlying common femoral artery and proximal SFA. No intraluminal filling defect identified. IMPRESSION: 1. Hematoma is now noted within the right inguinal region. No residual active pseudoaneurysm identified. Dictated by: Dictated on workstation # [id number]
== END ==
LOC: RAD 07:00
DX: I72.4 Aneurysm of artery of lower extremity (principal)
CPT/HCPCS: 93926

== ENCOUNTER → 2018-03-01 | Outpatient (CLI) | payer MEDICARE ==
[~2018-03-01] MED LIST changes: +CATHETER FLUSH 10 ML SYR IV PRN; +CEFU250T80 PO; +DIGO125T18 PO; +DILT-27 PO; +L.AC1CAP6 PO; +METO-395 PO; +PRED5DRO17 OD; +WARF6TAB6 PO
--- NOTE | 2018-03-01 14:50 | Diagnostic Imaging Report ---
INDICATION: Right upper quadrant pain. TECHNIQUE: Acquisitions were acquired over the abdomen after the patient was administered 4.99 mCi of technetium 99M Choletec. After 45 minutes, the patient ingested one can of Ensure and an ejection fraction was performed. FINDINGS: There is homogeneous uptake of isotope throughout the liver. There is significant accumulation in the gallbladder by 50 minutes. There is free flow of activity in the small bowel. The ejection fraction was calculated to be 27%. IMPRESSION: No evidence of cystic duct obstruction; however, there is an abnormally low ejection fraction of 27.7%. Dictated by: Dictated on workstation # [id number]
== END ==
LOC: CARD 12:26
PROVIDERS: ATTEND Family Medicine
DX: R10.11 Right upper quadrant pain (principal); K82.8 Other specified diseases of gallbladder
CPT/HCPCS: 78227

== ENCOUNTER 2018-03-25 15:30 | Outpatient (CLI) | payer MEDICARE ==
[~2018-03-25] VITALS: Ht 154.9 cm; Wt 51.7 kg
[~2018-03-25 15:30] MED LIST changes: +APIX2.5T PO; -CATHETER FLUSH 10 ML SYR IV PRN; +CLON0.1T PO; -METF500T4 PO; +METF500T5 PO; +WARF6TAB49 PO; -WARF6TAB6 PO
[2018-04-01] MEDS ORDERED: TRAM-42 PO (10:38)
== END 2018-03-25 15:51 ==
LOC: PREOP 15:30
PROVIDERS: ATTEND Surgery
DX: Z01.818 Encounter for other preprocedural examination (principal); K82.8 Other specified diseases of gallbladder

== ENCOUNTER 2018-04-01 07:02 | Day surgery (SDC) | payer MEDICARE ==
[~2018-04-01] VITALS: Ht 154.9 cm; Wt 51.7 kg
--- OUTSIDE RECORDS SUMMARY | 2018-04-01 07:07 | XMS REPORT | Continuity of Care Document ---
Author Author [facility] Organization [facility] Address Unknown Phone Unavailable Allergies Active Description Code Type Severity Reaction Onset Reported/Identified Relationship to Patient Clinical Status Yes No Known Drug Allergies [id number] Drug Allergy Unknown N/A 08/17/2010 Yes codeine [id number] Drug Allergy Mild NAUSEA 03/25/2018 Yes Sulfa (Sulfonamide Antibiotics) [id number] Drug Allergy Unknown N/A 2017 Medications There is no data. Problems Date Dx Coded Attending Type Code Diagnosis Diagnosed By 10/12/2014 AJ CONKLIN MD Ot 272.4 10/12/2014 AJ CONKLIN MD Ot 401.9 10/12/2014 AJ CONKLIN MD Ot 427.31 10/12/2014 AJ CONKLIN MD Ot 427.81 10/19/2014 AJ CONKLIN MD Ot 272.4 10/19/2014 AJ CONKLIN MD Ot 401.9 10/19/2014 AJ CONKLIN MD Ot 427.31 10/19/2014 AJ CONKLIN MD Ot 427.81 03/24/2017 AJ CONKLIN MD Ot E11.9 TYPE 2 DIABETES MELLITUS WITHOUT COMPLIC 03/24/2017 AJ CONKLIN MD Ot E78.2 MIXED HYPERLIPIDEMIA 03/24/2017 AJ CONKLIN MD Ot I10 ESSENTIAL (PRIMARY) HYPERTENSION 03/24/2017 AJ CONKLIN MD Ot I27.2 OTHER SECONDARY PULMONARY HYPERTENSION 03/24/2017 AJ CONKLIN MD Ot I35.1 NONRHEUMATIC AORTIC (VALVE) INSUFFICIENC 03/24/2017 AJ CONKLIN MD Ot I49.5 SICK SINUS SYNDROME 04/02/2017 AJ CONKLIN MD Ot E11.9 TYPE 2 DIABETES MELLITUS WITHOUT COMPLIC 04/02/2017 AJ CONKLIN MD Ot E78.5 HYPERLIPIDEMIA, UNSPECIFIED 04/02/2017 AJ CONKLIN MD, Ot I10 ESSENTIAL (PRIMARY) HYPERTENSION 04/02/2017 AJ CONKLIN MD, Ot I25.10 ATHSCL HEART DISEASE OF [place] CORONARY 04/02/2017 AJ CONKLIN MD Ot I35.1 NONRHEUMATIC AORTIC (VALVE) INSUFFICIENC 04/02/2017 AJ CONKLIN MD, Ot I48.0 PAROXYSMAL ATRIAL FIBRILLATION 04/02/2017 AJ CONKLIN MD, Ot I49.5 SICK SINUS SYNDROME 04/02/2017 AJ CONKLIN MD Ot R94.39 ABNORMAL RESULT OF OTHER CARDIOVASCULAR 04/02/2017 AJ CONKLIN MD, Ot Z79.01 [facility] (CURRENT) USE OF ANTICOAGULANT 04/02/2017 AJ CONKLIN MD, Ot Z79.84 [facility] (CURRENT) USE OF ORAL HYPOGLYC 04/02/2017 AJ CONKLIN MD, Ot Z79.899 OTHER SAFETY INSTRUCTION POLICE OFFICER (CURRENT) DRUG THERAPY 04/02/2017 AJ CONKLIN MD Ot Z95.0 PRESENCE OF CARDIAC PACEMAKER 04/04/2017 SOBIA HERNANDEZ APRN Ot I72.4 ANEURYSM OF ARTERY OF LOWER EXTREMITY 04/04/2017 SOBIA HERNANDEZ APRN Ot R22.41 LOCALIZED SWELLING, MASS AND LUMP, RIGHT 04/04/2017 SOBIA HERNANDEZ APRN Ot Z79.01 SAFETY INSTRUCTION POLICE OFFICER (CURRENT) USE OF ANTICOAGULANT 04/04/2017 SOBIA HERNANDEZ APRN Ot Z79.02 [facility] (CURRENT) USE OF ANTITHROMBOTI 04/04/2017 SOBIA HERNANDEZ APRN Ot Z79.82 SAFETY INSTRUCTION POLICE OFFICER (CURRENT) USE OF ASPIRIN 04/04/2017 SOBIA HERNANDEZ APRN Ot Z79.899 OTHER SAFETY INSTRUCTION POLICE OFFICER (CURRENT) DRUG THERAPY 04/04/2017 SOBIA HERNANDEZ APRN Ot Z95.0 PRESENCE OF CARDIAC PACEMAKER 04/04/2017 SOBIA HERNANDEZ APRN Ot Z98.890 OTHER SPECIFIED POSTPROCEDURAL STATES 04/06/2017 AJ CONKLIN MD, Ot I72.4 ANEURYSM OF ARTERY OF LOWER EXTREMITY 04/06/2017 AJ CONKLIN MD Ot E11.9 TYPE 2 DIABETES MELLITUS WITHOUT COMPLIC 04/06/2017 AJ CONKLIN MD Ot E78.5 HYPERLIPIDEMIA, UNSPECIFIED 04/06/2017 AJ CONKLIN MD Ot I10 ESSENTIAL (PRIMARY) HYPERTENSION 04/06/2017 AJ CONKLIN MD Ot I25.10 ATHSCL HEART DISEASE OF [place] CORONARY 04/06/2017 AJ CONKLIN MD Ot I35.1 NONRHEUMATIC AORTIC (VALVE) INSUFFICIENC 04/06/2017 AJ CONKLIN MD Ot I48.0 PAROXYSMAL ATRIAL FIBRILLATION 04/06/2017 AJ CONKLIN MD Ot I49.5 SICK SINUS SYNDROME 04/06/2017 AJ CONKLIN MD Ot R94.39 ABNORMAL RESULT OF OTHER CARDIOVASCULAR 04/06/2017 AJ CONKLIN MD Ot Z79.01 [employer]AF[employer]CTION POLICE OFFICER (CURRENT) USE OF ANTICOAGULANT 04/06/2017 AJ CONKLIN MD Ot Z79.84 SAFETY INSTRUCTION POLICE OFFICER (CURRENT) USE OF ORAL HYPOGLYC 04/06/2017 AJ CONKLIN MD Ot Z79.899 OTHER SAFETY INSTRUCTION POLICE OFFICER (CURRENT) DRUG THERAPY 04/06/2017 AJ CONKLIN MD Ot Z95.0 PRESENCE OF CARDIAC PACEMAKER 04/06/2017 AJ CONKLIN MD Ot I72.8 ANEURYSM OF OTHER SPECIFIED ARTERIES 04/08/2017 AJ CONKLIN MD Ot E11.9 TYPE 2 DIABETES MELLITUS WITHOUT COMPLIC 04/08/2017 AJ CONKLIN MD Ot E78.5 HYPERLIPIDEMIA, UNSPECIFIED 04/08/2017 AJ CONKLIN MD Ot I10 ESSENTIAL (PRIMARY) HYPERTENSION 04/08/2017 AJ CONKLIN MD Ot I25.10 ATHSCL HEART DISEASE OF [place] CORONARY 04/08/2017 AJ CONKLIN MD Ot I35.1 NONRHEUMATIC AORTIC (VALVE) INSUFFICIENC 04/08/2017 AJ CONKLIN MD Ot I48.0 PAROXYSMAL ATRIAL FIBRILLATION 04/08/2017 AJ CONKLIN MD Ot I49.5 SICK SINUS SYNDROME 04/08/2017 AJ CONKLIN MD Ot R94.39 ABNORMAL RESULT OF OTHER CARDIOVASCULAR 04/08/2017 AJ CONKLIN MD Ot Z79.01 SAFETY INSTRUCTION POLICE OFFICER (CURRENT) USE OF ANTICOAGULANT 04/08/2017 AJ CONKLIN MD Ot Z79.84 [facility] (CURRENT) USE OF ORAL HYPOGLYC 04/08/2017 AJ CONKLIN MD Ot Z79.899 OTHER [facility] (CURRENT) DRUG THERAPY 04/08/2017 AJ CONKLIN MD Ot Z95.0 PRESENCE OF CARDIAC PACEMAKER 04/11/2017 AJ CONKLIN MD Ot E11.9 TYPE 2 DIABETES MELLITUS WITHOUT COMPLIC 04/11/2017 AJ CONKLIN MD Ot E78.5 HYPERLIPIDEMIA, UNSPECIFIED 04/11/2017 AJ CONKLIN MD Ot I10 ESSENTIAL (PRIMARY) HYPERTENSION 04/11/2017 AJ CONKLIN MD Ot I25.10 ATHSCL HEART DISEASE OF [place] CORONARY 04/11/2017 AJ CONKLIN MD Ot I35.1 NONRHEUMATIC AORTIC (VALVE) INSUFFICIENC 04/11/2017 AJ CONKLIN MD Ot I48.0 PAROXYSMAL ATRIAL FIBRILLATION 04/11/2017 AJ CONKLIN MD Ot I49.5 SICK SINUS SYNDROME 04/11/2017 AJ CONKLIN MD Ot R94.39 ABNORMAL RESULT OF OTHER CARDIOVASCULAR 04/11/2017 AJ CONKLIN MD Ot Z79.01 [facility] (CURRENT) USE OF ANTICOAGULANT 04/11/2017 AJ CONKLIN MD Ot Z79.84 [facility] (CURRENT) USE OF ORAL HYPOGLYC 04/11/2017 AJ CONKLIN MD Ot Z79.899 OTHER SAFETY INSTRUCTION POLICE OFFICER (CURRENT) DRUG THERAPY 04/11/2017 AJ CONKLIN MD Ot Z95.0 PRESENCE OF CARDIAC PACEMAKER 04/14/2017 AJ CONKLIN MD Ot E11.9 TYPE 2 DIABETES MELLITUS WITHOUT COMPLIC 04/14/2017 AJ CONKLIN MD Ot E78.5 HYPERLIPIDEMIA, UNSPECIFIED 04/14/2017 AJ CONKLIN MD Ot I10 ESSENTIAL (PRIMARY) HYPERTENSION 04/14/2017 AJ CONKLIN MD Ot I25.10 ATHSCL HEART DISEASE OF [place] CORONARY 04/14/2017 AJ CONKLIN MD Ot I35.1 NONRHEUMATIC AORTIC (VALVE) INSUFFICIENC 04/14/2017 AJ CONKLIN MD Ot I48.0 PAROXYSMAL ATRIAL FIBRILLATION 04/14/2017 AJ CONKLIN MD Ot I49.5 SICK SINUS SYNDROME 04/14/2017 AJ CONKLIN MD Ot Z45.010 ENCNTR FOR CHECKING AND TEST OF CARD PAC 04/14/2017 AJ CONKLIN MD Ot Z79.01 [facility] (CURRENT) USE OF ANTICOAGULANT 04/14/2017 AJ CONKLIN MD, Ot Z79.899 OTHER [facility] (CURRENT) DRUG THERAPY 04/14/2017 AJ CONKLIN MD, Ot Z95.5 PRESENCE OF CORONARY ANGIOPLASTY IMPLANT 04/15/2017 CRISS MURPHY MD Ot I72.4 ANEURYSM OF ARTERY OF LOWER EXTREMITY 04/15/2017 AJ CONKLIN MD Ot E11.9 TYPE 2 DIABETES MELLITUS WITHOUT COMPLIC 04/15/2017 AJ CONKLIN MD Ot E78.2 MIXED HYPERLIPIDEMIA 04/15/2017 AJ CONKLIN MD Ot I10 ESSENTIAL (PRIMARY) HYPERTENSION 04/15/2017 AJ CONKLIN MD Ot I27.2 OTHER SECONDARY PULMONARY HYPERTENSION 04/15/2017 AJ CONKLIN MD Ot I35.1 NONRHEUMATIC AORTIC (VALVE) INSUFFICIENC 04/15/2017 AJ CONKLIN MD Ot I49.5 SICK SINUS SYNDROME 04/23/2017 AJ CONKLIN MD Ot E11.9 TYPE 2 DIABETES MELLITUS WITHOUT COMPLIC 04/23/2017 AJ CONKLIN MD Ot E78.5 HYPERLIPIDEMIA, UNSPECIFIED 04/23/2017 AJ CONKLIN MD Ot I10 ESSENTIAL (PRIMARY) HYPERTENSION 04/23/2017 AJ CONKLIN MD Ot I25.10 ATHSCL HEART DISEASE OF [place] CORONARY 04/23/2017 AJ CONKLIN MD Ot I35.1 NONRHEUMATIC AORTIC (VALVE) INSUFFICIENC 04/23/2017 AJ CONKLIN MD Ot I48.0 PAROXYSMAL ATRIAL FIBRILLATION 04/23/2017 AJ CONKLIN MD Ot I49.5 SICK SINUS SYNDROME 04/23/2017 AJ CONKLIN MD Ot Z45.010 ENCNTR FOR CHECKING AND TEST OF CARD PAC 04/23/2017 AJ CONKLIN MD Ot Z79.01 [facility] (CURRENT) USE OF ANTICOAGULANT 04/23/2017 AJ CONKLIN MD, Ot Z79.899 OTHER SAFETY INSTRUCTION POLICE OFFICER (CURRENT) DRUG THERAPY 04/23/2017 AJ CONKLIN MD Ot Z95.5 PRESENCE OF CORONARY ANGIOPLASTY IMPLANT 04/28/2017 AJ CONKLIN MD Ot E11.9 TYPE 2 DIABETES MELLITUS WITHOUT COMPLIC 04/28/2017 AJ CONKLIN MD Ot E78.2 MIXED HYPERLIPIDEMIA 04/28/2017 AJ CONKLIN MD Ot I10 ESSENTIAL (PRIMARY) HYPERTENSION 04/28/2017 AJ CONKLIN MD Ot I27.2 OTHER SECONDARY PULMONARY HYPERTENSION 04/28/2017 AJ CONKLIN MD Ot I35.1 NONRHEUMATIC AORTIC (VALVE) INSUFFICIENC 04/28/2017 AJ CONKLIN MD Ot I49.5 SICK SINUS SYNDROME 05/11/2017 JEFFREY PHILLIPS, CRISS Z Ot I72.4 ANEURYSM OF ARTERY OF LOWER EXTREMITY 05/13/2017 CRISS MURPHY MD Z Ot I72.4 ANEURYSM OF ARTERY OF LOWER EXTREMITY 02/25/2018 Ot 401.9 HYPERTENSION NOS 02/25/2018 Ot 427.31 ATRIAL FIBRILLATION 02/25/2018 Ot 427.81 SINOATRIAL NODE DYSFUNCT 02/25/2018 Ot 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 02/25/2018 Ot 397.0 TRICUSPID VALVE DISEASE 02/25/2018 Ot 401.9 HYPERTENSION NOS 02/25/2018 Ot 416.8 CHR PULMON HEART DIS NEC 02/25/2018 Ot 427.31 ATRIAL FIBRILLATION 02/25/2018 Ot 427.81 SINOATRIAL NODE DYSFUNCT 02/25/2018 Ot 429.3 CARDIOMEGALY 02/25/2018 Ot 793.3 NOSP (ABN) FINDINGS ON RADIOLOGICAL OT 02/25/2018 AJ CONKLIN MD Ot 272.4 HYPERLIPIDEMIA NEC/NOS 02/25/2018 AJ CONKLIN MD Ot 401.9 HYPERTENSION NOS 02/25/2018 AJ CONKLIN MD Ot 427.31 ATRIAL FIBRILLATION 02/25/2018 AJ CONKLIN MD Ot 427.81 SINOATRIAL NODE DYSFUNCT 02/25/2018 AJ CONKLIN MD Ot 272.4 HYPERLIPIDEMIA NEC/NOS 02/25/2018 AJ CONKLIN MD Ot 401.9 HYPERTENSION NOS 02/25/2018 AJ CONKLIN MD Ot 427.31 ATRIAL FIBRILLATION 02/25/2018 AJ CONKLIN MD Ot 427.81 SINOATRIAL NODE DYSFUNCT 02/25/2018 AJ CONKLIN MD Ot E11.9 TYPE 2 DIABETES MELLITUS WITHOUT COMPLIC 02/25/2018 AJ CONKLIN MD Ot E78.2 MIXED HYPERLIPIDEMIA 02/25/2018 AJ CONKLIN MD Ot I10 ESSENTIAL (PRIMARY) HYPERTENSION 02/25/2018 AJ CONKLIN MD Ot I27.2 OTHER SECONDARY PULMONARY HYPERTENSION 02/25/2018 AJ CONKLIN MD Ot I35.1 NONRHEUMATIC AORTIC (VALVE) INSUFFICIENC 02/25/2018 AJ CONKLIN MD Ot I49.5 SICK SINUS SYNDROME 02/25/2018 JEFFREY PHILLIPS, CRISS Ramos Ot I72.4 ANEURYSM OF ARTERY OF LOWER EXTREMITY 03/02/2018 MANDO KING MD, Ot K82.8 OTHER SPECIFIED DISEASES OF GALLBLADDER 03/02/2018 MANDO KING MD Ot R10.11 RIGHT UPPER QUADRANT PAIN 03/24/2018 MANDO KING MD Ot K82.8 OTHER SPECIFIED DISEASES OF GALLBLADDER 03/24/2018 MANDO KING MD Ot R10.11 RIGHT UPPER QUADRANT PAIN 03/25/2018 WALT LOPEZ MD Ot K82.8 OTHER SPECIFIED DISEASES OF GALLBLADDER 03/25/2018 WALT LOPEZ MD Ot Z01.818 ENCOUNTER FOR OTHER PREPROCEDURAL EXAMIN 03/25/2018 WALT LOPEZ MD Ot K82.8 OTHER SPECIFIED DISEASES OF GALLBLADDER 03/25/2018 WALT LOPEZ MD, Ot Z01.818 ENCOUNTER FOR OTHER PREPROCEDURAL EXAMIN 03/25/2018 WALT LOPEZ MD, Ot K82.8 OTHER SPECIFIED DISEASES OF GALLBLADDER 03/25/2018 WALT LOPEZ MD, Ot Z01.818 ENCOUNTER FOR OTHER PREPROCEDURAL EXAMIN 03/31/2018 MANDO KING MD, Ot K82.8 OTHER SPECIFIED DISEASES OF GALLBLADDER 03/31/2018 MANDO KING MD Ot R10.11 RIGHT UPPER QUADRANT PAIN Procedures There is no data. Results Test Result Range Complete urinalysis with reflex to culture - 04/01/17 07:18 Urine color determination YELLOW NRG Urine clarity determination CLEAR NRG Urine pH measurement by test strip 6.5 5-9 Specific gravity of urine by test strip 1.010 1.016- 1.022 Urine protein assay by test strip, semi-quantitative 2+ NEGATIVE Urine glucose detection by automated test strip NEGATIVE NEGATIVE Erythrocytes detection in urine sediment by light microscopy 1+ NEGATIVE Urine ketones detection by automated test strip NEGATIVE NEGATIVE Urine nitrite detection by test strip NEGATIVE NEGATIVE Urine total bilirubin detection by test strip NEGATIVE NEGATIVE Urine urobilinogen measurement by automated test strip (mass/volume) NORMAL NORMAL Urine leukocyte esterase detection by dipstick 2+ NEGATIVE Automated urine sediment erythrocyte count by microscopy (number/high power field) [HPF] NRG Automated urine sediment leukocyte count by microscopy (number/high power field ) [HPF] NRG Bacteria detection in urine sediment by light microscopy FEW NRG Squamous epithelial cells detection in urine sediment by light microscopy 0-2 NRG Crystals detection in urine sediment by light microscopy NONE NRG Casts detection in urine sediment by light microscopy NONE NRG Mucus detection in urine sediment by light microscopy SMALL NRG Complete urinalysis with reflex to culture YES NRG Bacterial urine culture - 04/01/17 07:18 Bacterial urine culture NG NRG Automated blood complete blood count (hemogram) panel - 04/01/17 07:29 Blood leukocytes automated count (number/volume) 8.4 10*3/uL 4.3-11.0 Blood erythrocytes automated count (number/volume) 4.78 10*6/uL 4.35-5.85 Venous blood hemoglobin measurement (mass/volume) 14.0 g/dL 11.5-16.0 Blood hematocrit (volume fraction) 44 % 35-52 Automated erythrocyte mean corpuscular volume 92 [foz_us] 80-99 Automated erythrocyte mean corpuscular hemoglobin (mass per erythrocyte) 29 pg 25-34 Automated erythrocyte mean corpuscular hemoglobin concentration measurement ( mass/volume) 32 g/dL 32-36 Automated erythrocyte distribution width ratio 13.7 % 10.0-14.5 Automated blood platelet count (count/volume) 261 10*3/uL 130-400 Automated blood platelet mean volume measurement 10.4 [foz_us] 7.4-10.4 Comprehensive metabolic panel - 04/01/17 07:29 Serum or plasma sodium measurement (moles/volume) 139 mmol/L 135-145 Serum or plasma potassium measurement (moles/volume) 4.0 mmol/L 3.6-5.0 Serum or plasma chloride measurement (moles/volume) 104 mmol/L 98-107 Carbon dioxide 24 mmol/L 21-32 Serum or plasma anion gap determination (moles/volume) 11 mmol/L 5-14 Serum or plasma urea nitrogen measurement (mass/volume) 20 mg/dL 7-18 Serum or plasma creatinine measurement (mass/volume) 1.09 mg/dL 0.60-1.30 Serum or plasma urea nitrogen/creatinine mass ratio 18 NRG Serum or plasma creatinine measurement with calculation of estimated glomerular filtration rate 48 NRG Serum or plasma glucose measurement (mass/volume) 167 mg/dL 70-105 Serum or plasma calcium measurement (mass/volume) 9.4 mg/dL 8.5-10.1 Serum or plasma total bilirubin measurement (mass/volume) 1.0 mg/dL 0.1-1.0 Serum or plasma alkaline phosphatase measurement (enzymatic activity/volume) 92 U/L 40-136 Serum or plasma aspartate aminotransferase measurement (enzymatic activity/ volume) 21 U/L 5-34 Serum or plasma alanine aminotransferase measurement (enzymatic activity/volume ) 31 U/L 0-55 Serum or plasma protein measurement (mass/volume) 6.9 g/dL 6.4-8.2 Serum or plasma albumin measurement (mass/volume) 4.3 g/dL 3.2-4.5 Lipid 1996 panel - 04/01/17 07:29 Serum or plasma triglyceride measurement (mass/volume) 81 mg/dL <150 Serum or plasma cholesterol measurement (mass/volume) 115 mg/dL < 200 Serum or plasma cholesterol in HDL measurement (mass/volume) 41 mg/ dL 40-60 Cholesterol in LDL [mass/volume] in serum or plasma by direct assay 60 mg/dL 1-129 Serum or plasma cholesterol in VLDL measurement (mass/volume) 16 mg/ dL 5-40 PT panel in platelet poor plasma by coagulation assay - 04/01/17 07:29 Prothrombin time (PT) in platelet poor plasma by coagulation assay 16.1 s 12.2-14.7 INR in platelet poor plasma or blood by coagulation assay 1.3 0.8-1.4 Activated partial thromboplastin time (aPTT) in platelet poor plasma bycoagulation assay - 04/01/17 07:29 Activated partial thromboplastin time (aPTT) in platelet poor plasma bycoagulation assay 29 s 24-35 Methicillin resistant Staphylococcus aureus (MRSA) screening culture - 07:30 Methicillin resistant Staphylococcus aureus (MRSA) screening culture NEG NRG Automated blood complete blood count (hemogram) panel - 04/02/17 03:35 Blood leukocytes automated count (number/volume) 7.4 10*3/uL 4.3-11.0 Blood erythrocytes automated count (number/volume) 3.88 10*6/uL 4.35-5.85 Venous blood hemoglobin measurement (mass/volume) 11.5 g/dL 11.5-16.0 Blood hematocrit (volume fraction) 35 % 35-52 Automated erythrocyte mean corpuscular volume 91 [foz_us] 80-99 Automated erythrocyte mean corpuscular hemoglobin (mass per erythrocyte) 30 pg 25-34 Automated erythrocyte mean corpuscular hemoglobin concentration measurement ( mass/volume) 33 g/dL 32-36 Automated erythrocyte distribution width ratio 13.5 % 10.0-14.5 Automated blood platelet count (count/volume) 223 10*3/uL 130-400 Automated blood platelet mean volume measurement 10.8 [foz_us] 7.4-10.4 Whole blood basic metabolic panel - 04/02/17 03:35 Serum or plasma sodium measurement (moles/volume) 139 mmol/L 135-145 Serum or plasma potassium measurement (moles/volume) 3.8 mmol/L 3.6-5.0 Serum or plasma chloride measurement (moles/volume) 109 mmol/L 98-107 Carbon dioxide 21 mmol/L 21-32 Serum or plasma anion gap determination (moles/volume) 9 mmol/L 5-14 Serum or plasma urea nitrogen measurement (mass/volume) 13 mg/dL 7-18 Serum or plasma creatinine measurement (mass/volume) 0.81 mg/dL 0.60-1.30 Serum or plasma urea nitrogen/creatinine mass ratio 16 NRG Serum or plasma creatinine measurement with calculation of estimated glomerular filtration rate > NRG Serum or plasma glucose measurement (mass/volume) 155 mg/dL 70-105 Serum or plasma calcium measurement (mass/volume) 8.5 mg/dL 8.5-10.1 Complete blood count (CBC) with automated white blood cell (WBC) differential - 04/04/17 21:25 Blood leukocytes automated count (number/volume) 8.2 10*3/uL 4.3-11.0 Blood erythrocytes automated count (number/volume) 3.79 10*6/uL 4.35-5.85 Venous blood hemoglobin measurement (mass/volume) 11.3 g/dL 11.5-16.0 Blood hematocrit (volume fraction) 35 % 35-52 Automated erythrocyte mean corpuscular volume 92 [foz_us] 80-99 Automated erythrocyte mean corpuscular hemoglobin (mass per erythrocyte) 30 pg 25-34 Automated erythrocyte mean corpuscular hemoglobin concentration measurement ( mass/volume) 32 g/dL 32-36 Automated erythrocyte distribution width ratio 13.7 % 10.0-14.5 Automated blood platelet count (count/volume) 244 10*3/uL 130-400 Automated blood platelet mean volume measurement 10.4 [foz_us] 7.4-10.4 Automated blood neutrophils/100 leukocytes 63 % 42-75 Automated blood lymphocytes/100 leukocytes 24 % 12-44 Blood monocytes/100 leukocytes 11 % 0-12 Automated blood eosinophils/100 leukocytes 1 % 0-10 Automated blood basophils/100 leukocytes 1 % 0-10 Blood neutrophils automated count (number/volume) 5.1 10*3 1.8-7.8 Blood lymphocytes automated count (number/volume) 2.0 10*3 1.0-4.0 Blood monocytes automated count (number/volume) 0.9 10*3 0.0-1.0 Automated eosinophil count 0.1 10*3/uL 0.0-0.3 Automated blood basophil count (count/volume) 0.0 10*3/uL 0.0-0.1 PT panel in platelet poor plasma by coagulation assay - 04/04/17 21:25 Prothrombin time (PT) in platelet poor plasma by coagulation assay 16.9 s 12.2-14.7 INR in platelet poor plasma or blood by coagulation assay 1.4 0.8-1.4 Methicillin resistant Staphylococcus aureus (MRSA) screening culture - 07:30 Methicillin resistant Staphylococcus aureus (MRSA) screening culture NEG NRG Encounters ACCT No. Visit Date/Time Discharge Status Pt. Type Provider Facility Loc./Unit Complaint [id number] 03/25/2018 15:30:00 03/25/2018 15:51:00 DIS Outpatient WALT LOPEZ MD [facility] PREOP BILIARY DYSKINESIA [id number] 03/01/2018 12:26:00 03/01/2018 23:59:59 CLS Outpatient MANDO KING MD [facility] CARD RUQ PAIN [id number] 04/13/2017 07:04:00 04/14/2017 09:10:00 DIS Outpatient AJ CONKLIN MD [facility] CATH ESA,SSS,HTN,HLP,DM [id number] 04/13/2017 08:30:00 04/13/2017 23:59:59 CLS Outpatient CRISS MURPHY MD [facility] RAD I72.4 [id number] 04/06/2017 12:15:00 04/06/2017 17:00:00 DIS Outpatient AJ CONKLIN MD [facility] RAD I72.9PSEUDOANEURYSM [id number] 04/04/2017 21:05:00 04/04/2017 22:27:00 DIS Emergency SOBIA HERNANDEZ APRN [facility] ER RECENT HEART SURGERY - SWELLING ON AREA [id number] 04/01/2017 06:55:00 04/02/2017 09:15:00 DIS Outpatient AJ CONKLIN MD [facility] CATH ABN STRESS, AORTIC INSUF ,PAF [id number] 03/23/2017 08:03:00 03/23/2017 23:59:59 CLS Outpatient AJ CONKLIN MD [facility] CARD I35.1 [id number] 09/20/2014 08:05:00 09/20/2014 23:59:59 CLS Outpatient AJ CONKLIN MD [facility] CARD PAF,HTN,HLP,SIC SINUS SYNDROME [id number] 07/14/2014 09:40:00 07/14/2014 23:59:59 CLS Outpatient AJ CONKLIN MD [facility] CARD SSS,PAF,HTN,HLP [id number] 04/01/2018 07:02:00 ACT Outpatient WALT LOPEZ MD [facility] SDC BILIARY DYSKINESIA [id number] 03/09/2013 07:29:00 Document Registration [id number] 01/26/2013 13:39:00 Document Registration
[2018-04-01 07:15] VITALS: BP 181/93
[2018-04-01] MEDS ORDERED: LACTATED RINGERS 1,000 ML IV PRN (07:23)
[2018-04-01] MEDS ORDERED: ceFAZolin INJECTION 1,000 MG in NS (IVPB) 100 ML IV ONE (07:30)
[2018-04-01] MEDS ORDERED: BUP/EPI 0.5% 1:200,000 (SENSORCAINE) 30 ML VIAL ONE (07:44)
[2018-04-01] MEDS ORDERED: proPOfol 200 MG/20 ML (DIPRIVAN) VIAL IV ONE (07:46)
[2018-04-01] MEDS ORDERED: LIDOCAINE PF 2% 5 ML (XYLOCAINE) VIAL ONE (07:46)
[2018-04-01] MEDS ORDERED: ONDANSETRON 4 MG/2 ML (SDV) Z0FRAN ONE (07:46)
[2018-04-01] MEDS ORDERED: fentaNYL INJECTION 100 MCG/2 ML AMP ONE (07:47)
[2018-04-01] MEDS ORDERED: MIDAZOLAM 2 MG/2 ML (VERSED) VIAL ONE (07:47)
[2018-04-01 07:50] LABS: BASOPHILS # (AUTO) 0.1 10^3/uL (0.0-0.1); BASOPHILS % (AUTO) 1 % (0-10); EOSINOPHILS # (AUTO) 0.1 10^3/uL (0.0-0.3); EOSINOPHILS % (AUTO) 2 % (0-10); HEMATOCRIT 39 % (35-52); HEMOGLOBIN 13.1 G/DL (11.5-16.0); LYMPHOCYTES # (AUTO) 1.5 X 10^3 (1.0-4.0); LYMPHOCYTES % (AUTO) 31 % (12-44); MEAN CORPUSCULAR HEMOGLOBIN 31 PG (25-34); MEAN CORPUSCULAR HGB CONC 33 G/DL (32-36); MEAN CORPUSCULAR VOLUME 92 FL (80-99); MEAN PLATELET VOLUME 10.4 FL (7.4-10.4); MONOCYTES # (AUTO) 0.5 X 10^3 (0.0-1.0); MONOCYTES % (AUTO) 11 % (0-12); NEUTROPHILS # (AUTO) 2.7 X 10^3 (1.8-7.8); NEUTROPHILS % (AUTO) 55 % (42-75); PLATELET COUNT 216 10^3/uL (130-400); RED BLOOD COUNT 4.27 10^6/uL (4.35-5.85); RED CELL DISTRIBUTION WIDTH 13.1 % (10.0-14.5)
[2018-04-01] MEDS ORDERED: ROCURONIUM 10 MG/ML 5 ML SYRINGE IV ONE (07:53)
[2018-04-01] MEDS ORDERED: SEVOFLURANE (ULTANE) 15 ML INHAL SOLN ONE ×2 (07:53→10:39)
--- NOTE | 2018-04-01 08:02 | Progress Note-Pre Operative ---
Pre-Operative Progress Note H&P Reviewed The H&P was reviewed, patient examined and no changes noted. Date Seen by Provider: April 01, 2018 Time Seen by Provider: 07:50 Date H&P Reviewed: April 01, 2018 Time H&P Reviewed: 07:55 Pre-Operative Diagnosis: Biliary Dyskinesia ELIZABETH ROBERTS APRN April 01, 2018 8:02 am
[2018-04-01] MEDS ORDERED: fentaNYL INJECTION 100 MCG/2 ML AMP IVP PRN (08:15)
[2018-04-01] MEDS ORDERED: ONDANSETRON 4 MG/2 ML (SDV) Z0FRAN IVP PRN (08:15)
[2018-04-01] MEDS ORDERED: ACETAMINOPHEN 325 MG TABLET/CAPLET (TYLENOL) PO PRN (08:15)
[2018-04-01] MEDS ORDERED: NEOSTIGMINE 1 MG/ML 5 ML SYRINGE ONE (10:24)
[2018-04-01] MEDS ORDERED: GLYCOPYRROLATE 0.2 MG/ML (ROBINUL) 2 ML VIAL ONE (10:24)
--- NOTE | 2018-04-01 10:32 | Progress Note-Post Operative ---
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 Procedure & Operative Findings Date of Procedure 04/01/18 Procedure Performed/Findings laparoscopic cholecystectomy Anesthesia Type GET Estimated Blood Loss Estimated blood loss (mL): minimal Specimens/Packing Specimens Removed gallbladder WALT LOPEZ MD April 01, 2018 10:32 am
[2018-04-01] MEDS ORDERED: TRAM-42 PO (10:38)
--- NOTE | 2018-04-01 10:39 | Discharge Inst-Surgical ---
D/C Lap Instructions-JOHN New, Converted, or Re-Newed RX: RX on Chart Follow Up Appt in 2 weeks Activity as tolerated No driving for 24 hours [address] while on pain medications Incentive Spirometry use every 2 hours while awake Regular Diet Symptoms to Report: Fever over 101 degree F, Nausea/Vomiting Infection Signs and Symptoms to report: Increased redness, Foul odor of wound, Increased drainage Bathing instructions: May shower Operative Area Clean/Dry; Keep incision clean/dry If any problems/questions: Contact your physician or go to Emergency Room WALT LOPEZ MD April 01, 2018 10:39 am
[2018-04-01] MEDS ORDERED: meTOprolol 5 MG/5 ML (LOPRESSOR) VIAL ONE (10:51)
[2018-04-01 11:30] VITALS: BP 165/81
[2018-04-01 12:00] VITALS: BP 153/98
[2018-04-01 12:30] VITALS: BP 184/83
[2018-04-01 13:25] VITALS: BP 184/83
--- NOTE | 2018-04-01 17:03 | OPERATIVE REPORT ---
DATE OF SERVICE: 04/01/2018 ATTENDING PRIMARY CARE PHYSICIAN: Michaelle Rivas MD. PREOPERATIVE DIAGNOSIS: Symptomatic biliary dyskinesia. POSTOPERATIVE DIAGNOSIS: Chronic calculous cholecystitis. PROCEDURE PERFORMED: Laparoscopic cholecystectomy. SURGEON: Walt Lopez MD. IRON GUARDRAIL INSTALLER: Vincent Yu APRN. ANESTHESIA: General endotracheal. ESTIMATED BLOOD LOSS: Minimal. FINDINGS: Mild chronic gallbladder wall inflammation as well as very small gallstones and cholesterolosis. DISPOSITION: The patient tolerated the procedure well. INDICATIONS: The patient is an 82-year-old female with recurrent episodes of right upper abdominal quadrant pain associated with nausea, usually after meals. Because of this issue, she has developed some weight loss and fear of eating. She reports that the pain would be in the right upper abdominal quadrant, sharp in nature and would also radiate toward the back. She also had reported associated diarrhea during these episodes. An ultrasound did not show any gallstones; however, a HIDA scan was performed, which showed a low ejection fraction of 27% as well as reproduction of symptoms consistent with a biliary dyskinesia. DESCRIPTION OF PROCEDURE: The patient was brought to the operating room, laid supine on the table. After adequate IV pain and sedating medications and general endotracheal intubation, the abdomen was prepped and draped in standard surgical fashion. A 0.5% Marcaine with epinephrine was then used to anesthetize the overlying skin in the left upper abdominal quadrant. A small transverse skin incision made using a 15 blade. An 0 silk suture was applied to the medial aspect of the incision for retraction and a Veress needle inserted with a low opening pressure of 0 mmHg and the abdomen was insufflated to 15 mmHg pressure. The Veress needle removed and a 5 mm XCEL trocar placed followed by a 5 mm 45-degree angle laparoscope visualizing the peritoneal cavity. A 4-quadrant abdominal exploration was performed. There was mild gallbladder wall inflammation. Visualized the liver, small bowel, stomach appeared normal. Under direct visualization, we then proceeded to place a supraumbilical 10 mm port after the skin and peritoneal lining were anesthetized using 0.5% Marcaine with epinephrine and a transverse skin incision made using a 15 blade. In a similar manner, a right upper abdominal quadrant 5 mm port was placed. The fundus of the gallbladder was then retracted anteriorly and superiorly and the patient was placed in reverse Trendelenburg position as well as plane right side up and left side down. The hepatoduodenal ligament was then opened using blunt dissection as well as electrocautery on the hook instrument. The entire critical view of safety was identified including the triangle of Calot as well as the cystic duct and artery as the only two structures going into the gallbladder as well as the cystic plate behind the proximal gallbladder. A timeout was then taken. The cystic duct and artery were then clipped proximally, distally and cut with EndoShears. The gallbladder was then dissected off the liver bed using electrocautery on hook instrument with visualization good hemostasis as well as no leaking ducts of Luschka. The gallbladder was removed through the 10 mm port site using an EndoCatch bag. The 10 mm port site fascia and peritoneum were then closed under direct visualization using Taiwo-Amisha device and an 0 Vicryl suture. The abdomen was desufflated and remaining ports were removed. All skin incisions were closed using 4-0 Monocryl running subcuticular sutures. Wounds were then cleaned and covered with Dermabond. The patient tolerated the procedure well. We will start IV normal pain medication as well as a clear liquid diet. Once she is tolerating clears, has good pain control with oral pain medications, ambulating well, we will discharge her home. Job ID: [id number] DocumentID: [id number] Dictated Date: 04/01/2018 10:46:02 Event Sales Assistant Date: 04/01/2018 17:02:43 Dictated By: WALT LOPEZ MD
== END 2018-04-01 13:25 | disposition home or self-care (01) ==
LOC: SDC 07:02
PROVIDERS: ATTEND Surgery
DX: K80.10 Calculus of gallbladder with chronic cholecystitis without obstruction (principal); E11.9 Type 2 diabetes mellitus without complications; I25.10 Atherosclerotic heart disease of native coronary artery without angina pectoris; I10 Essential (primary) hypertension; I48.91 Unspecified atrial fibrillation; Z95.0 Presence of cardiac pacemaker; Z95.5 Presence of coronary angioplasty implant and graft; Z79.01 Long term (current) use of anticoagulants; Z79.82 Long term (current) use of aspirin; Z79.84 Long term (current) use of oral hypoglycemic drugs; Z79.899 Other long term (current) drug therapy
CPT/HCPCS: 36415; 82962; 85025; 87081; 88304; 94664

== ENCOUNTER 2018-05-31 06:47 | Day surgery (SDC) | payer MEDICARE ==
[2018-05-31] VITALS (15 sets, daily range): BP systolic 115–195; BP diastolic 59–89
[~2018-05-31] VITALS: Ht 154.9 cm; Wt 50.4 kg
[~2018-05-31 06:47] MED LIST changes: +TRAM-42 PO
[2018-05-31] MEDS ORDERED: LIDOCAINE 1% INJ 20 ML 20 ML VIAL ONE (06:59)
[2018-05-31] MEDS ORDERED: NS IV 1000 ML 1,000 ML ONE (06:59)
[2018-05-31] MEDS ORDERED: HEParin (CATH LAB) 2,000 ML IV ONE (07:00)
[2018-05-31] MEDS ORDERED: NS IV 1000 ML 1,000 ML IV SCH ×2 (07:07→07:15)
[2018-05-31 07:49] LABS: HEMOGLOBIN 13.9 G/DL (11.5-16.0); MEAN PLATELET VOLUME 9.9 FL (7.4-10.4); RED BLOOD COUNT 4.41 10^6/uL (4.35-5.85); RED CELL DISTRIBUTION WIDTH 12.9 % (10.0-14.5); WHITE BLOOD COUNT 6.6 10^3/uL (4.3-11.0)
--- NOTE | 2018-05-31 07:57 | Diagnostic Imaging Report ---
INDICATION: Pre-renal angiography, possible renal angioplasty. Coronary artery disease and hypertension. EXAMINATION: Chest 05/31/2018 COMPARISON: 04/13/2017 FINDINGS: There is cardiomegaly. Density in the retrocardiac region likely a large hiatal hernia and similar to previous. Left sided pacemaker stable. The lungs demonstrate chronic findings and mild hyperinflation but are clear. No effusions and no pneumothorax. IMPRESSION: 1. Likely moderate to large hiatal hernia with cardiomegaly noted. Remaining chest unremarkable. Dictated by: Dictated on workstation # [id number]
[2018-05-31 08:00] LABS: PROTHROMBIN TIME PATIENT 13.6 SEC (12.2-14.7)
[2018-05-31 08:06] LABS: ALANINE AMINOTRANSFERASE 11 U/L (0-55); ALBUMIN 4.3 GM/DL (3.2-4.5); ALKALINE PHOSPHATASE 128 U/L (40-136); BILIRUBIN,TOTAL 0.6 MG/DL (0.1-1.0); BUN/CREATININE RATIO 13; CALCIUM 10.1 MG/DL (8.5-10.1); CARBON DIOXIDE 24 MMOL/L (21-32); CHLORIDE 105 MMOL/L (98-107); CHOLESTEROL 160 MG/DL (< 200); CREATININE SERUM 0.82 MG/DL (0.60-1.30); GFR ESTIMATED > 60; GLUCOSE 173 MG/DL (70-105); HDL CHOLESTEROL 51 MG/DL (40-60); POTASSIUM 4.1 MMOL/L (3.6-5.0); SODIUM 138 MMOL/L (135-145); TRIGLYCERIDES 140 MG/DL (<150); VLDL CHOLESTEROL 28 MG/DL (5-40)
[2018-05-31] MEDS ORDERED: WHEA1POW6 PO (08:07)
[2018-05-31] MEDS ORDERED: CHOL378P PO (08:07)
--- NOTE | 2018-05-31 09:07 | Cardiac Procedure Note-CS/ASA ---
Pre-Procedure Note Pre-Op Procedure Note H&P Reviewed The H&P was reviewed, patient examined and no changes noted. Date H&P Reviewed: May 31, 2018 Time H&P Reviewed: 09:07 Conscious Sedation Pre-Proced Time Reviewed: 09:07 ASA Class: 3 Airway Mallampati Classification: (anvik appropriate class) I. II. III, IV Lungs Heart ASA score ASA 1: a normal healthy patient ASA 2: a patient with a mild systemic disease (mid diabetes, controlled hypertension, obesity x ASA 3: a patient with a severe systemic disease that limits activity (angina , COPD, prior Myocardial infarction) ASA 4: a patient with an incapacitating disease that is a constant threat to life (CHF, renal failure) ASA 5: a moribund patient not expected to survive 24 hrs. (ruptured aneurysm) ASA 6: a declared brain patient whose organs are being harvested. For emergent operations, add the letter E after the classification Grade 3 Sedation Plan: Analgesia, Amnesia, Plan communicated to team members, Discussed options with patient/fam, Discussed risks with patient/fam Note The patient is an appropriate candidate to undergo the planned procedure, sedation, and anesthesia. The patient immediately re-assessed prior to indication. AJ CONKLIN MD May 31, 2018 09:07
[2018-05-31] MEDS ORDERED: MIDAZOLAM 5 MG/5 ML (VERSED) VIAL ONE (09:21)
[2018-05-31] MEDS ORDERED: fentaNYL INJECTION 100 MCG/2 ML AMP ONE (09:21)
[2018-05-31] MEDS ORDERED: HEParin 1000 UNIT/ML (10ML VIAL) FOR BOLUS ONE (09:53)
[2018-05-31] MEDS ORDERED: meTOprolol 5 MG/5 ML (LOPRESSOR) VIAL ONE (10:25)
[2018-05-31] MEDS ORDERED: ENALAPRILAT 2.5 MG/2 ML (VASOTEC) VIAL IV ONE (10:25)
[2018-05-31] MEDS ORDERED: PATIENT MAY USE OWN MEDS, ALL PO SCH (10:30)
[2018-05-31] MEDS ORDERED: NITRO DRIP 25000 MCG/D5W 250 ML IV ONE (10:35)
[2018-05-31] MEDS ORDERED: ASPIRIN 325 MG (5 GR) TABLET ONE (10:39)
[2018-05-31] MEDS ORDERED: CLOPIDOGREL 300 MG (PLAVIX) TABLET PO ONE (10:39)
--- NOTE | 2018-05-31 10:40 | Peripheral Report ---
Peripheral Report Physician (s)/Cane Pusher (s) Physician AJ CONKLIN MD Pre-Procedure Diagnosis Pre-Procedure Diagnosis: Renal artery stenosis, malignant hypertension Post-Procedure Note Procedure Start Date: May 31, 2018 Name of Procedure: 82 years old lady with malignant hypertension requiring multiple medication, had a CT angiogram of the abdomen suggestive of severe left renal artery stenosis, scheduled for renal angiogram possible stenting Selective bilateral renal angiogram Stenting of the left renal artery Findings/Procedure Note PROCEDURE NOTE: After explaining the procedure to the patient, all pros and cons were explained , all questions were answered. The patient signed the consent and then she was placed on the cardiac catheterization laboratory. The patient was placed on the cardiac catheterization laboratory. Groin was prepped SL fashion local anesthesia was used. Sheath placed in the left femoral artery. During the procedure I upgraded the sheath 7 Marshallese for the intervention, given 5000 units of heparin, Connor right guide was used to access the left renal artery then turned and selectively injecting the right renal artery, then I proceeded with intervention. I used 7 Marshallese SOMMERS short guide, BMW wire was advanced then predilated the lesion with Viatrac 7x15, it appear to be oversized so I decided to proceed with stenting using Herculink 518 mm expanded to 5.22 under 14 fabio with excellent results, I attempted to advance a balloon to post-dilate but due to the angle of the guide I was unable to advance it and I was satisfied with the final results. FINDINGS: Left renal angiogram: Severe proximal stenosis, predilated patient with balloon angioplasty then deployment of stent using Herculink 5x18 with excellent results , no residual stenosis Right renal angiogram: Mild disease nonobstructive disease CONCLUSIONS: 1. Severe proximal stenosis in the left renal artery successful balloon angioplasty then stenting using Herculink 5x18 mm, expanded to 5.22 with excellent results 2. Mild nonobstructive disease in the right renal artery DISCUSSION AND RECOMMENDATION Continue to maximize medical therapyS: Anesthesia Type: Conscious Sedation Estimated blood loss (mL): 10 ml Contrast Amount: 55 ml Total Radiation Dose: 153 mGy Post-Procedure Diagnosis Post-operative diagnosis: Malignant hypertension Renal artery stenosis Diabetes mellitus Hyperlipidemia AJ CONKILN MD May 31, 2018 10:40
[2018-05-31] MEDS: NS IV 1000 ML 1,000 ML IV SCH ×2 (12:18→18:38)
[2018-05-31] MEDS: cloNIDine 0.1 MG (CATAPRES) TAB PO SCH ×2 (13:19→20:41)
[2018-05-31] MEDS ORDERED: meTOprolol SUCCINATE 100 MG (TOPROL XL) TAB PO SCH (21:00)
[2018-06-01 04:09] LABS: HEMOGLOBIN 11.9 G/DL (11.5-16.0); MEAN PLATELET VOLUME 10.2 FL (7.4-10.4); RED BLOOD COUNT 3.87 10^6/uL (4.35-5.85); RED CELL DISTRIBUTION WIDTH 13.1 % (10.0-14.5); WHITE BLOOD COUNT 5.5 10^3/uL (4.3-11.0)
[2018-06-01 04:18] VITALS: BP 167/74
[2018-06-01 04:33] LABS: BUN/CREATININE RATIO 13; CALCIUM 8.8 MG/DL (8.5-10.1); CARBON DIOXIDE 22 MMOL/L (21-32); CHLORIDE 107 MMOL/L (98-107); CREATININE SERUM 0.82 MG/DL (0.60-1.30); GFR ESTIMATED > 60; GLUCOSE 155 MG/DL (70-105); POTASSIUM 4.2 MMOL/L (3.6-5.0); SODIUM 138 MMOL/L (135-145)
[2018-06-01] MEDS: NS IV 1000 ML 1,000 ML IV SCH (06:27)
[2018-06-01] MEDS: cloNIDine 0.1 MG (CATAPRES) TAB PO SCH (07:00)
[2018-06-01 07:47] VITALS: BP 186/76
[2018-06-01] MEDS ORDERED: CLOPIDOGREL 75 MG (PLAVIX) TABLET PO SCH (09:00)
[2018-06-01] MEDS ORDERED: ASPIRIN E.C. 81 MG (ECOTRIN) TAB PO SCH (09:00)
[2018-06-01] MEDS ORDERED: DILTIAZEM 120 MG (CARDIZEM CD) CAP PO SCH (09:00)
[2018-06-01] MEDS ORDERED: lisINopril 40 MG (PRINIVIL) TABLET PO SCH (09:00)
[2018-06-01] MEDS ORDERED: DIGOXIN 0.125 MG (LANOXIN) TAB PO SCH (09:00)
--- NOTE | 2018-06-01 09:26 | Cardiology Progress Note ---
Subjective Date Seen by Provider: Jun 01, 2018 Time Seen by Provider: 09:24 Subjective/Events-last exam Patient is laying down in bed, feeling better, blood pressure is elevated. All her questions were answered. Review of Systems General: No Chills, No Night Sweats, No Fatigue, No Malaise, No Appetite, No Other HEENT: No Head Aches, No Visual Changes, No Eye Pain, No Ear Pain, No Dysphasia , No Sinus Congestion, No Post Nasal Drip, No Sore Throat, No Other Pulmonary: No Dyspnea, No Cough, No Pleuritic Chest Pain, No Other Cardiovascular: No: Chest Pain, Palpitations, Orthopnea, Paroxysmal Noc. Dyspnea, Edema, Lt Headedness, Other Objective-Cardiology Exam Last Set of Vital Signs Vital Signs 06/01/18 06/01/18 07:47 08:00 Temp 97.6 Pulse 62 Resp 18 B/P (MAP) 186/76 (112) Pulse Ox 98 O2 Delivery Room Air Capillary Refill : Less Than 3 Seconds I&O Intake and Output 06/01/18 00:00 Intake Total 850 ml Output Total 0 ml Balance 850 ml Intake Oral 450 ml IV Total 400 ml Output Urine Total 0 ml # Voids 2 Daily Weight Change No General: Alert, Oriented X3, Cooperative HEENT: Atraumatic, PERRLA Neck: Supple, No JVD, No Thyromegaly Lungs: Clear to Auscultation, Normal Air Movement Heart: Regular Rate, Normal S1, Normal S2, Other (S3, systolic murmur) Abdomen: Normal Bowel Sounds, Soft, No Tenderness, No Hepatosplenomegaly, No Masses Extremities: No Clubbing, No Cyanosis, No Edema, Normal Pulses, No Tenderness/ Swelling Skin: No Rashes, No Breakdown, No Significant Lesion Neuro: Normal Gait, Normal Speech, Strength at 5/5 X4 Ext, Normal Tone, Sensation Intact Psych/Mental Status: Mental Status NL, Mood NL Results Lab Laboratory Tests 06/01/18 03:15 A/P-Cardiology Admission Diagnosis Malignant hypertension Renal artery stenosis Permanent pacemaker Paroxysmal atrial fibrillation Assessment/Plan Malignant hypertension, on multiple medication, restart her medicine. I instructed her to take additional clonidine as needed in addition to the 3 times a day and monitor her blood pressure closely Renal artery stenosis status post left renal artery stent with excellent results Coronary artery disease, clinically stable Permanent pacemaker. Paroxysmal atrial fibrillation. Currently in sinus rhythm Clinical Quality Measures DVT/VTE Risk/Contraindication: Risk Factor Score Per Nursin RFS Level Per Nursing on Admit: 2=Moderate AJ CONKLIN MD Jun 01, 2018 09:26
[2018-06-01] MEDS ORDERED: CLOP75TA28 PO (09:28)
--- NOTE | 2018-06-01 09:29 | Discharge Inst-Post CATH ---
Discharge Inst-CATH Post Cardiac Cath D/C Inst Follow Up/Plan Appointment with Dr. Comer's office in 4 weeks Hold metformin for 48 hours CARDIAC CATH DISCHARGE INSTRUCTIONS *Hold Metformin for 48 hours post heart cath. ACTIVITY * Go Home directly and rest. * Limit activity of the leg (or wrist if it was used) for 7 days including aerobics, swimming, jogging, bicycling, etc. * Restrict stair-climbing for 7 days if possible, if not, climb up with your non -cath leg, then bring together on the same step. * Avoid lifting, pushing, pulling or excessive movement of the affected extremity for 7 days. * Customary sexual activity may be resumed after 2 days-use caution not to use a position that strains or causes pain to the affected extremity. * No driving for 24 hours. * NO SMOKING. * Avoid straining for bowel movements for 7 days. * Gentle walking on level ground is allowed. * Returning to work will depend on the type of procedure and the results. Your doctor will discuss this with you. CALL YOUR DOCTOR FOR ANY OF THE FOLLOWING: *If bleeding from the puncture site occurs- Apply gentle pressure to site with clean cloth and call your doctor or EMS. * If a knot or lump forms under the skin, increases in size, or causes pain. * If bruising appears to be worsening or moving further down your leg instead of disappearing. * Temperature above 101 F. CARE OF YOUR GROIN INCISION; * Bruising or purple discoloration of the skin near the puncture site is common. * You may shower only, no bathtub bathing for 5 days. Be careful to avoid slipping as your leg may feel stiff. * If a closure device was used on your femoral artery, please see the attached guide regarding care of the device and your leg. * REMOVE the dressing from your groin the next day after your procedure in the shower. CARE OF YOUR WRIST INCISION; * Bruising or purple discoloration of the skin near the puncture site is common. * You may shower. * DO NOT submerge wrist. * Remove dressing in 24 hours. JA COMER MD Jun 01, 2018 09:28
[2018-06-01] MEDS ORDERED: cloNIDine 0.1 MG (CATAPRES) TAB PO NR (09:30)
[2018-06-01 11:00] VITALS: BP 160/80
== END 2018-06-01 11:15 | disposition home or self-care (01) ==
LOC: CATH 06:47 → ICU 11:27 → CATH 06-01 11:15 → ICU 06-01 12:41
PROVIDERS: ATTEND Internal Medicine Cardiovascular Disease
DX: I10 Essential (primary) hypertension (principal); I70.1 Atherosclerosis of renal artery; E11.9 Type 2 diabetes mellitus without complications; E78.5 Hyperlipidemia, unspecified; I48.0 Paroxysmal atrial fibrillation; I25.10 Atherosclerotic heart disease of native coronary artery without angina pectoris; R60.9 Edema, unspecified; I65.23 Occlusion and stenosis of bilateral carotid arteries; I35.8 Other nonrheumatic aortic valve disorders; I35.1 Nonrheumatic aortic (valve) insufficiency; Z11.2 Encounter for screening for other bacterial diseases; Z88.2 Allergy status to sulfonamides; Z79.899 Other long term (current) drug therapy; Z79.84 Long term (current) use of oral hypoglycemic drugs; Z79.82 Long term (current) use of aspirin; Z95.0 Presence of cardiac pacemaker; Z95.5 Presence of coronary angioplasty implant and graft
CPT/HCPCS: 36252; 36415; 37236; 71045; 80048; 80053; 80061; 82962; 85027; 85610; 85730; 87081

== ENCOUNTER 2018-06-07 21:50 | Emergency (ER) | payer MEDICARE ==
[~2018-06-07] VITALS: Ht 154.9 cm; Wt 50.4 kg
[~2018-06-07 21:50] MED LIST changes: +CHOL378P PO; +WHEA1POW6 PO
[2018-06-07 22:16] LABS: BASOPHILS % (AUTO) 1 % (0-10); EOSINOPHILS # (AUTO) 0.2 10^3/uL (0.0-0.3); EOSINOPHILS % (AUTO) 3 % (0-10); HEMATOCRIT 36 % (35-52); HEMOGLOBIN 12.2 G/DL (11.5-16.0); LYMPHOCYTES # (AUTO) 2.5 X 10^3 (1.0-4.0); LYMPHOCYTES % (AUTO) 32 % (12-44); MEAN CORPUSCULAR HEMOGLOBIN 31 PG (25-34); MEAN CORPUSCULAR HGB CONC 34 G/DL (32-36); MEAN CORPUSCULAR VOLUME 92 FL (80-99); MEAN PLATELET VOLUME 9.7 FL (7.4-10.4); MONOCYTES # (AUTO) 0.8 X 10^3 (0.0-1.0); MONOCYTES % (AUTO) 11 % (0-12); NEUTROPHILS # (AUTO) 4.1 X 10^3 (1.8-7.8); NEUTROPHILS % (AUTO) 54 % (42-75); PLATELET COUNT 249 10^3/uL (130-400); RED BLOOD COUNT 3.95 10^6/uL (4.35-5.85); RED CELL DISTRIBUTION WIDTH 13.2 % (10.0-14.5); WHITE BLOOD COUNT 7.7 10^3/uL (4.3-11.0)
--- NOTE | 2018-06-07 22:26 | ED General ---
General Chief Complaint: General Problems/Pain Stated Complaint: STENT PLACED IN ABD, LOOKS INFECTED Nursing Triage Note: PT AMBULATED TO [facility], ACCOMPNAIED BY FAMILY. PT HAD STENT PLACED IN LEG 1 WEEK AGO TODAY. PT PLACED WARM COMPRESS OVER INCISION SITE TODAY AND AREA THEN BECAME ENLARGED AND SWOLLEN. Nursing Sepsis Screen: No Definite Risk Source of Information: Patient, Family Exam Limitations: No Limitations History of Present Illness Date Seen by Provider: Jun 07, 2018 Time Seen by Provider: 21:56 Initial Comments Here with report of swelling to the area of the left groin near the area of the catheter site from 05/31/18 when she had renal artery catheter and stenting. Noted swelling today. 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 Denies fever or chills. Denies other concerns. Does report some pain but client pain medicine. Timing/Duration: 12 Hours Severity: Moderate Associated Systoms: No Fever/Chills, No Nausea/Vomiting, No Shortness of Air, No Weakness Allergies and Home Medications Allergies Coded Allergies: codeine (Verified Allergy, Mild, NAUSEA, 03/25/18) Sulfa (Sulfonamide Antibiotics) (Verified Allergy, Unknown, 03/25/18) Home Medications Apixaban 2.5 Mg Tablet, 2.5 MG PO BID, (Reported) Aspirin 81 Mg Tablet.dr, 81 MG PO DAILY, (Reported) Cholestyramine (with Sugar) 378 Gm Powder, 378 GM PO ONCE PRN for DIARRHEA, ( Reported) Clonidine HCl 0.1 Mg Tablet, 0.1 MG PO TID, (Reported) Clopidogrel Bisulfate 75 Mg Tablet, 75 MG PO DAILY Prescribed by: AJ COMER on 06/01/18 0928 Digoxin 125 Mcg Tablet, 125 MCG PO DAILY, (Reported) Diltiazem HCl 120 Mg Cap.er.24h, 120 MG PO DAILY, (Reported) Lisinopril 40 Mg Tablet, 40 MG PO DAILY, (Reported) Metoprolol Succinate 100 Mg Tab.er.24h, 100 MG PO HS, (Reported) Pravastatin Sodium 40 Mg Tablet, 40 MG PO HS, (Reported) Wheat Dextrin 1 Each Powd.pack, 1 EACH PO DAILY, (Reported) Patient Home Medication List Home Medication List Reviewed: Yes Review of Systems Constitutional: see HPI; No chills, No fever EENTM: no symptoms reported Respiratory: no symptoms reported Cardiovascular: No chest pain; Hx of Intervention Gastrointestinal: No abdominal pain, No nausea, No vomiting Genitourinary: no symptoms reported Musculoskeletal: no symptoms reported Skin: see HPI, change in color; No lesions Psychiatric/Neurological: No Symptoms Reported All Other Systems Reviewed Negative Unless Noted: Yes Past Cwjzagl-Coxdmn-Odzavl Hx Past Med/Social Hx: Reviewed Nursing Past Med/Soc Hx Patient Social History Alcohol Use: Denies Use Recreational Drug Use: No Smoking Status: Never a Smoker Recent Foreign Travel: No Contact w/Someone Who Travel: No Recent Infectious Disease Expo: No Recent Hopitalizations: No Immunizations Up To Date PED Vaccines UTD: No Seasonal Allergies Seasonal Allergies: No Past Medical History Surgeries: Yes Appendectomy Respiratory: No Atrial Fibrillation, High Cholesterol, Hypertension Neurological: No Reproductive Disorders: No Sexually Transmitted Disease: No HIV/AIDS: No Genitourinary: No Gall Bladder Disease Musculoskeletal: No Endocrine: Yes Cataract Loss of Vision: Denies Hearing Impairment: Denies Cancer: No Psychosocial: No Integumentary: No Blood Disorders: No Adverse Reaction/Blood Tranf: No Family Medical History Reviewed Nursing Family Hx No Pertinent Family Hx Physical Exam Vital Signs Vital Signs - First Documented 06/07/18 21:55 Temp 98.1 Pulse 63 Resp 14 B/P (MAP) 202/85 (124) O2 Delivery Room Air Capillary Refill : Less Than 3 Seconds Height, Weight, BMI Height: 5', 1.00" Weight: 111lbs 1.0oz, [id number] Method:Stated ,21.0BMI General Appearance: No Apparent Distress, WD/WN Neck: Non Tender, Supple Respiratory: Lungs Clear, Normal Breath Sounds Cardiovascular: Regular Rate, Rhythm, No Murmur Gastrointestinal: Non Tender, Soft Back: Normal Inspection, No CVA Tenderness, No Vertebral Tenderness Extremity: Normal Range of Motion, Non Tender Neurologic/Psychiatric: Alert, Oriented x3 Skin: Warm/Dry, Ecchymosis, Other (swelling to the area of the left groin approximately 3 x 3 cm with moderate surrounding ecchymosis.) Progress/Results/Core Measures Suspected Sepsis Recent Fever Within 48 Hours: No Infection Criteria Present: None New/Unexplained Altered Menta: No Sepsis Screen: No Definite Risk SIRS Temperature:98.1 Pulse: 63 Respiratory Rate: 14 Laboratory Tests 06/07/18 22:09: White Blood Count 7.7 Blood Pressure 202 /85 Mean: 124 Laboratory Tests 06/07/18 22:09: Creatinine 0.83, INR Comment 1.1, Platelet Count 249, Total Bilirubin 0.3 Results/Orders Lab Results Laboratory Tests Test 06/07/18 22:09 Range/Units White Blood Count 7.7 4.3-11.0 10^3/uL Red Blood Count 3.95 L 4.35-5.85 10^6/uL Hemoglobin 12.2 11.5-16.0 G/DL Hematocrit 36 35-52 % Mean Corpuscular Volume 92 80-99 FL Mean Corpuscular Hemoglobin 31 25-34 PG Mean Corpuscular Hemoglobin Concent 34 32-36 G/DL Red Cell Distribution Width 13.2 10.0-14.5 % Platelet Count 249 130-400 10^3/uL Mean Platelet Volume 9.7 7.4-10.4 FL Neutrophils (%) (Auto) 54 42-75 % Lymphocytes (%) (Auto) 32 12-44 % Monocytes (%) (Auto) 11 0-12 % Eosinophils (%) (Auto) 3 0-10 % Basophils (%) (Auto) 1 0-10 % Neutrophils # (Auto) 4.1 1.8-7.8 X 10^3 Lymphocytes # (Auto) 2.5 1.0-4.0 X 10^3 Monocytes # (Auto) 0.8 0.0-1.0 X 10^3 Eosinophils # (Auto) 0.2 0.0-0.3 10^3/uL Basophils # (Auto) 0.0 0.0-0.1 10^3/uL Prothrombin Time 14.2 12.2-14.7 SEC INR Comment 1.1 0.8-1.4 Activated Partial Thromboplast Time 31 24-35 SEC Sodium Level 136 135-145 MMOL/L Potassium Level 3.9 3.6-5.0 MMOL/L Chloride Level 101 98-107 MMOL/L Carbon Dioxide Level 24 21-32 MMOL/L Anion Gap 11 5-14 MMOL/L Blood Urea Nitrogen 12 7-18 MG/DL Creatinine 0.83 0.60-1.30 MG/DL Estimat Glomerular Filtration Rate > 60 BUN/Creatinine Ratio 14 Glucose Level 169 H 70-105 MG/DL Calcium Level 9.7 8.5-10.1 MG/DL Total Bilirubin 0.3 0.1-1.0 MG/DL Aspartate Amino Transf (AST/SGOT) 11 5-34 U/L Alanine Aminotransferase (ALT/SGPT) 9 0-55 U/L Alkaline Phosphatase 115 40-136 U/L C-Reactive Protein High Sensitivity 0.12 0.00-0.50 MG/DL Total Protein 7.0 6.4-8.2 GM/DL Albumin 4.2 3.2-4.5 GM/DL My Orders Orders - ADITYA BLUNT MD Us Left Low Ext Arterial [id number] (06/07/18 22:04) Cbc With Automated Diff (06/07/18 22:07) Comprehensive Metabolic Panel (06/07/18 22:07) Hs C Reactive Protein (06/07/18 22:07) Protime With Inr (06/07/18 22:07) Partial Thromboplastin Time (06/07/18 22:07) Saline Lock/Iv-Start (06/07/18 22:07) Vital Signs/I&O 06/07/18 21:55 Temp 98.1 Pulse 63 Resp 14 B/P (MAP) 202/85 (124) O2 Delivery Room Air Capillary Refill : Less Than 3 Seconds Blood Pressure Mean: 124 Progress Note : Progress Note Seen and evaluated. IV, labs and ultrasound left groin arterial ordered. Monitor patient. 2249: Ultrasound complete and shows no pseudoaneurysm. There is hematoma. I discussed the case with Dr. Young. He is okay with patient going home and following up with Dr. Comer as needed. We will use cool packs to the area of swelling. I did go over return precautions with the patient and family. Discharged home with return precautions. Patient and family verbalize understanding of instructions and agreement with plan. Diagnostic Imaging Diagonstic Imaging: Ultrasound Plain Films/CT/US/NM/MRI: leg Comments Left leg arterial ultrasound for pseudoaneurysm does not show pseudoaneurysm but does show hematoma per preliminary read. Departure Impression Primary Impression: Postoperative hematoma Qualified Codes: I97.630 - Postprocedural hematoma of a circulatory system organ or structure following a cardiac catheterization Disposition: 01 HOME, SELF-CARE Condition: Improved Departure-Patient Inst. Decision time for Depature: 23:02 Referrals: MANDO KING MD (PCP/Family) Primary Care Physician Patient Instructions: HEMATOMA Add. Discharge Instructions: All discharge instructions reviewed with patient and/or family. Voiced understanding. You may use cool packs to the area of concern 20 minutes per hour as needed to reduce swelling and pain. Continue home medications as directed. Follow-up with Dr. Comer early next week for recheck and further evaluation. Return for worse pain, swelling, weakness, fever, foul-smelling drainage or other concerns as needed. ADITYA BLUNT MD Jun 07, 2018 22:25
[2018-06-07 22:37] LABS: ALANINE AMINOTRANSFERASE 9 U/L (0-55); ALBUMIN 4.2 GM/DL (3.2-4.5); ALKALINE PHOSPHATASE 115 U/L (40-136); CALCIUM 9.7 MG/DL (8.5-10.1); CHLORIDE 101 MMOL/L (98-107); CREATININE SERUM 0.83 MG/DL (0.60-1.30); GFR ESTIMATED > 60; POTASSIUM 3.9 MMOL/L (3.6-5.0); SODIUM 136 MMOL/L (135-145)
[2018-06-07 22:38] LABS: INR 1.1 (0.8-1.4); PROTHROMBIN TIME PATIENT 14.2 SEC (12.2-14.7)
[2018-06-07 22:56] LABS: BILIRUBIN,TOTAL 0.3 MG/DL (0.1-1.0); BUN/CREATININE RATIO 14; CARBON DIOXIDE 24 MMOL/L (21-32); GLUCOSE 169 MG/DL (70-105)
[2018-06-07 23:17] VITALS: BP 168/69
--- NOTE | 2018-06-08 08:28 | Diagnostic Imaging Report ---
INDICATION: Groin pain post catheterization. FINDINGS: Ventral to the common femoral artery, there is a 2.4 x 2.2 cm nonvascularized collection presumed hematoma. No color flow. No evidence for patent pseudoaneurysm. No evidence for arterial obstruction or AV fistula. IMPRESSION: Hematoma 2.4 cm in the groin ventral to the femoral artery without flow or evidence for pseudoaneurysm. Dictated by: Dictated on workstation # [id number]
== END 2018-06-07 23:17 | disposition home or self-care (01) ==
LOC: EDUNIT# 21:50 → ER 21:51
DX: I97.630 Postprocedural hematoma of a circulatory system organ or structure following a cardiac catheterization (principal); I48.91 Unspecified atrial fibrillation; E78.00 Pure hypercholesterolemia, unspecified; I10 Essential (primary) hypertension; Z88.2 Allergy status to sulfonamides; Z88.5 Allergy status to narcotic agent; Z79.82 Long term (current) use of aspirin; Z90.49 Acquired absence of other specified parts of digestive tract
CPT/HCPCS: 36415; 80053; 85025; 85610; 85730; 86141; 93926

== ENCOUNTER → 2018-06-15 | Outpatient (CLI) | payer MEDICARE ==
--- NOTE | 2018-06-15 15:51 | Diagnostic Imaging Report ---
INDICATION: Left groin hematoma. COMPARISON: Correlation is made with prior exam from 06/07/2018. FINDINGS: Correlation of the left groin again demonstrates a small hematoma which has decreased in size since prior now measuring 1.4 x 0.9 x 2.2 cm. This compares with 2.1 x 2.2 x 2.4 cm. No internal vascularity or evidence of pseudoaneurysm is seen. IMPRESSION: Slight decrease in size of left groin hematoma when compared with examination from 06/07/2018. Dictated by: Dictated on workstation # [id number]
== END ==
LOC: RAD 14:43
PROVIDERS: ATTEND Internal Medicine Interventional Cardiology
DX: I97.630 Postprocedural hematoma of a circulatory system organ or structure following a cardiac catheterization (principal)
CPT/HCPCS: 76881

== ENCOUNTER 2019-05-23 06:13 | Outpatient (CLI) | payer MEDICARE ==
[~2019-05-23] VITALS: Ht 154.9 cm; Wt 48.6 kg
[~2019-05-23 06:13] MED LIST changes: +METF-397 PO; -METF500T5 PO
[2019-05-23] MEDS ORDERED: CLON0.2T PO (11:26)
[2019-05-23] MEDS ORDERED: LORA1TAB PO (11:26)
[2019-05-23] MEDS ORDERED: METF-397 PO (11:30)
== END 2019-05-24 08:51 | disposition home or self-care (01) ==
LOC: PREOP 06:13
PROVIDERS: ATTEND Surgery
DX: Z01.818 Encounter for other preprocedural examination (principal)

== ENCOUNTER 2019-05-25 13:10 | Day surgery (SDC) | payer MEDICARE ==
[~2019-05-25] VITALS: Ht 154.9 cm; Wt 48.6 kg
[~2019-05-25 13:10] MED LIST changes: +CLON0.2T PO; +LORA1TAB PO
[2019-05-25] MEDS ORDERED: NS IV 500 ML 500 ML IV PRN (13:27)
[2019-05-25] MEDS ORDERED: NS IV 500 ML 500 ML ONE (13:28)
[2019-05-25] MEDS ORDERED: fentaNYL INJECTION 100 MCG/2 ML AMP IVP ONE (13:30)
[2019-05-25] MEDS ORDERED: MIDAZOLAM 2 MG/2 ML (VERSED) VIAL IVP ONE (13:30)
[2019-05-25] MEDS ORDERED: LIDOCAINE JELLY 2% 6 ML SYRINGE MM PRN (13:30)
--- NOTE | 2019-05-25 13:36 | Progress Note-Pre Operative ---
Pre-Operative Progress Note H&P Reviewed The H&P was reviewed, patient examined and no changes noted. Date Seen by Provider: May 25, 2019 Time Seen by Provider: 13:30 Date H&P Reviewed: May 25, 2019 Time H&P Reviewed: 13:30 Pre-Operative Diagnosis: diarrhea/change in bowel habits WALT LOPEZ MD May 25, 2019 13:36
--- NOTE | 2019-05-25 13:36 | Conscious Sedation/ASA ---
Conscious Sedation Pre-Proced Time 13:30 ASA Score 2 For ASA 3 and 4: Consider anesthesia and medical clearance. Also, for patients with a history of failed moderate sedation consider anesthesia. Airway Lungs Heart ASA score ASA 1: a normal healthy patient ASA 2: a patient with a mild systemic disease (mid diabetes, controlled hypertension, obesity ASA 3: a patient with a severe systemic disease that limits activity (angina, COPD, prior Myocardial infarction) ASA 4: a patient with an incapacitating disease that is a constant threat to life (CHF, renal failure) ASA 5: a moribund patient not expected to survive 24 hrs. (ruptured aneurysm) ASA 6: a declared brain- patient whose organs are being harvested. For emergent operations, add the letter E after the classification Mallampati Classification Grade 2 Sedation Plan Analgesia, Amnesia, Plan communicated to team members, Discussed options with patient/fam, Discussed risks with patient/fam The patient is an appropriate candidate to undergo the planned procedure, sedation, and anesthesia. The patient immediately re-assessed prior to indication. WALT LOPEZ MD May 25, 2019 13:36
--- NOTE | 2019-05-25 13:40 | Discharge Inst-Surgical ---
D/C Lap Instructions-JOHN Follow Up Activity as tolerated High Fiber Diet 25g or more per day Avoid Alcohol, Caffeine, Spicy [place] and Acid foods. Drink 64 fluid oz or more of fluids per day. Symptoms to Report: Fever over 101 degree F, Nausea/Vomiting If any problems/questions: Contact your physician or go to Emergency Room WALT LOPEZ MD May 25, 2019 13:40
[2019-05-25] MEDS ORDERED: HYDROcodone/APAP 5 MG/325 MG (LORTAB) TAB PO PRN (13:45)
[2019-05-25] MEDS ORDERED: morphine INJ 10 MG/ML 1ML (SYR OR VIAL) IVP PRN ×2 (13:45)
[2019-05-25] MEDS ORDERED: ACETAMINOPHEN 325 MG TABLET PO PRN (13:45)
[2019-05-25] MEDS ORDERED: ONDANSETRON 4 MG/2 ML (SDV) Z0FRAN IVP PRN (13:45)
[2019-05-25 14:31] VITALS: BP 122/87
[2019-05-25] MEDS ORDERED: LIDOCAINE JELLY 2% 6 ML SYRINGE ONE (15:28)
[2019-05-25] MEDS ORDERED: MIDAZOLAM 2 MG/2 ML (VERSED) VIAL ONE ×3 (15:28→15:29)
[2019-05-25] MEDS ORDERED: fentaNYL INJECTION 100 MCG/2 ML AMP ONE (15:28)
[2019-05-25 16:10] VITALS: BP 151/70
--- NOTE | 2019-05-25 16:10 | Progress Note-Post Operative ---
Post-Operative Progess Note Surgeon (s)/Workday Senior Associate (s) Surgeon WALT LOPEZ MD Workday Senior Associate: none Pre-Operative Diagnosis diarrhea/change in bowel habits Post-Operative Diagnosis mild chronic stage 2 ext and int hemorrhoids. Procedure & Operative Findings Date of Procedure 05/25/19 Procedure Performed/Findings colonoscopy Anesthesia Type cs Estimated Blood Loss Estimated blood loss (mL): minimal Specimens/Packing Specimens Removed none WALT LOPEZ MD May 25, 2019 16:10
[2019-05-25 16:40] VITALS: BP 146/75
[2019-05-25 16:51] VITALS: BP 146/75
--- NOTE | 2019-05-26 01:11 | OPERATIVE REPORT ---
DATE OF SERVICE: 05/25/2019 ATTENDING PRIMARY PHYSICIAN: Dr. Rivas. PREOPERATIVE DIAGNOSES: Screening colonoscopy, diarrhea. POSTOPERATIVE DIAGNOSIS: Mild chronic stage II external and internal hemorrhoids. Remainder of the rectum and colon were normal. PROCEDURE: Colonoscopy. SURGEON: Walt Lopez MD ANESTHESIA: Conscious sedation. ESTIMATED BLOOD LOSS: Minimal. FINDINGS: Mild chronic stage II external and internal hemorrhoids. Remainder of the rectum and colon were normal. There were no polyps or any neoplasms identified. DISPOSITION: The patient tolerated the procedure well. INDICATIONS: The patient is an 83-year-old female known to us. She has had pain after eating meals with radiation towards the back and she underwent a HIDA scan, which did show a low ejection fraction 27% and on 04/01/2018 underwent a laparoscopic cholecystectomy. She has had a change in bowel habits, which is expected after a cholecystectomy. She does report loose stools in the morning. She started taking Lomotil p.r.n., which appears to be making her symptoms more tolerable. She has not had a colonoscopy up to this point in her life. She does not report any red blood per rectum nor any dark tarry stools. DESCRIPTION OF PROCEDURE: The patient was brought to the endoscopy suite, laid in left lateral decubitus position. After adequate IV pain and sedative medications, a conscious sedation anesthesia, a digital rectal examination was performed. Mild chronic stage II external and internal hemorrhoids were identified, which were not actively edematous nor inflamed and no bleeding. Normal sphincter tone was felt and there were no palpable masses. The endoscope was then intubated to the anus, rectum and gently insufflated. The endoscope was then advanced to the valves of [place] of the rectum with no polyps or neoplasms identified. We then proceeded to the sigmoid colon where no diverticulosis identified. The endoscope was then advanced into the remainder of descending, transverse and ascending colon to the cecum. These segments were normal. There were no polyps or any neoplasms identified throughout the colon or rectum. The endoscope was then slowly withdrawn while taking a second look and suctioning of residual air with no additional findings. The patient tolerated the procedure well. We will recommend continued medical management with a high-fiber diet with at least 25 grams of fiber per day to promote soft stools on a daily basis that are not liquid diarrhea. However, we also did not want her to become constipated. Also after surgical removal of the gallbladder, there is a normal adjustment. This may take some amount of time before consistency of stools and bowel movements just back to normal. Job ID: [id number] DocumentID: [id number] Dictated Date: 05/25/2019 16:06:30 Regional Hr Manager Date: 05/26/2019 01:09:52 Dictated By: WALT LOPEZ MD
== END 2019-05-25 16:53 | disposition home or self-care (01) ==
LOC: ENDO 13:10
PROVIDERS: ATTEND Surgery
DX: K64.1 Second degree hemorrhoids (principal); R19.7 Diarrhea, unspecified; I25.10 Atherosclerotic heart disease of native coronary artery without angina pectoris; E11.9 Type 2 diabetes mellitus without complications; I10 Essential (primary) hypertension; I48.91 Unspecified atrial fibrillation; E78.00 Pure hypercholesterolemia, unspecified; Z95.0 Presence of cardiac pacemaker; Z95.5 Presence of coronary angioplasty implant and graft; Z94.7 Corneal transplant status; Z79.84 Long term (current) use of oral hypoglycemic drugs; Z79.899 Other long term (current) drug therapy; Z79.01 Long term (current) use of anticoagulants

== ENCOUNTER 2020-07-11 07:47 | Day surgery (SDC) | payer MEDICARE ==
[2020-07-11] VITALS (12 sets, daily range): BP systolic 127–168; BP diastolic 66–79
[~2020-07-11] VITALS: Ht 154.9 cm; Wt 50.0 kg
[~2020-07-11 07:47] MED LIST changes: -METO-395 PO; +MTP100TCR PO
[2020-07-11] MEDS ORDERED: HEParin (CATH LAB) 2,000 ML IV ONE (07:58)
[2020-07-11] MEDS ORDERED: LIDOCAINE 1% INJ 20 ML 20 ML VIAL ONE (07:58)
[2020-07-11] MEDS ORDERED: NS IV 1000 ML 1,000 ML ONE (07:58)
[2020-07-11] MEDS ORDERED: NS IV 1000 ML 1,000 ML IV SCH (08:00)
[2020-07-11 08:27] LABS: BILIRUBIN,URINE NEGATIVE (NEGATIVE); CLARITY,URINE CLEAR; COLOR,URINE YELLOW; GLUCOSE, URINE (UA) NEGATIVE (NEGATIVE); HEMOGLOBIN 13.9 G/DL (11.5-16.0); KETONES,URINE NEGATIVE (NEGATIVE); LEUKOCYTE ESTERASE ,URINE NEGATIVE (NEGATIVE); MEAN PLATELET VOLUME 9.9 FL (7.4-10.4); NITRITE,URINE NEGATIVE (NEGATIVE); PH,URINE 7.5 (5-9); PROTEIN,URINE 1+ (NEGATIVE); RED CELL DISTRIBUTION WIDTH 12.7 % (10.0-14.5); WHITE BLOOD COUNT 5.9 10^3/uL (4.3-11.0)
[2020-07-11 08:34] LABS: BACTERIA,URINE NEGATIVE /HPF; SQUAMOUS EPITHELIAL CELL,UR RARE /HPF
--- NOTE | 2020-07-11 08:38 | Diagnostic Imaging Report ---
INDICATION: Preop for heart catheterization. Time of exam: 8:23 AM Correlation is made with prior chest from 05/31/2018. Heart size is stable. There is a dual-lead left subclavian cardiac pacemaker. Patient appears to have a large hiatal hernia. Lungs are clear. No infiltrates are seen. There is no effusion or pneumothorax. IMPRESSION: Stable chest. No acute feature is detected. Dictated by: Dictated on workstation # [id number]
[2020-07-11 08:40] LABS: PROTHROMBIN TIME PATIENT 13.8 SEC (12.2-14.7)
[2020-07-11 08:49] LABS: ALBUMIN 4.1 GM/DL (3.2-4.5); BILIRUBIN,TOTAL 0.5 MG/DL (0.1-1.0); CALCIUM 9.3 MG/DL (8.5-10.1); CREATININE SERUM 1.03 MG/DL (0.60-1.30); POTASSIUM 4.2 MMOL/L (3.6-5.0); TOTAL PROTEIN 7.2 GM/DL (6.4-8.2)
[2020-07-11] MEDS ORDERED: PRED5DRO24 OU (08:49)
[2020-07-11] MEDS ORDERED: HYDR-3923 PO (08:49)
[2020-07-11] MEDS ORDERED: GLIM2TAB4 PO ×2 (08:49)
[2020-07-11] MEDS ORDERED: LORA-404 PO (08:49)
[2020-07-11] MEDS ORDERED: LINA5TAB PO (08:49)
[2020-07-11] MEDS ORDERED: MIDAZOLAM 5 MG/5 ML (VERSED) VIAL ONE (09:47)
[2020-07-11] MEDS ORDERED: fentaNYL INJECTION 100 MCG/2 ML AMP ONE (09:47)
--- NOTE | 2020-07-11 09:48 | Cardiac Procedure Note-CS/ASA ---
Pre-Procedure Note Pre-Op Procedure Note H&P Reviewed The H&P was reviewed, patient examined and no changes noted. Date H&P Reviewed: Jul 11, 2020 Time H&P Reviewed: 09:48 Conscious Sedation Pre-Proced Time 09:48 ASA Score 3 For ASA 3 and 4: Consider anesthesia and medical clearance. Also, for patients with a history of failed moderate sedation consider anesthesia. Airway Lungs Heart ASA score ASA 1: a normal healthy patient ASA 2: a patient with a mild systemic disease (mid diabetes, controlled hypertension, obesity x ASA 3: a patient with a severe systemic disease that limits activity (angina, COPD, prior Myocardial infarction) ASA 4: a patient with an incapacitating disease that is a constant threat to life (CHF, renal failure) ASA 5: a moribund patient not expected to survive 24 hrs. (ruptured aneurysm) ASA 6: a declared brain- patient whose organs are being harvested. For emergent operations, add the letter E after the classification Mallampati Classification Grade 3 Sedation Plan Analgesia, Amnesia, Plan communicated to team members, Discussed options with patient/fam, Discussed risks with patient/fam The patient is an appropriate candidate to undergo the planned procedure, sedation, and anesthesia. The patient immediately re-assessed prior to indication. AJ CONKLIN MD Jul 11, 2020 09:48
[2020-07-11] MEDS ORDERED: HEParin 1000 UNIT/ML (10ML VIAL) FOR BOLUS ONE (09:50)
[2020-07-11] MEDS ORDERED: VERAPAMIL 5 MG/2 ML (CALAN) VIAL IV ONE (09:50)
[2020-07-11] MEDS ORDERED: NITRO DRIP 25000 MCG/D5W 250 ML IV ONE (09:50)
--- NOTE | 2020-07-11 10:11 | NUR ---
SPOKE WITH THE PT (SHE HAD HER BOTTLES AND A MED LIST) AND WENT THRU THE EXT MED HISTORY TO COMPLETE THE MED REC THE FOLLOWING ARE FILL DATES FROM [facility] THAT ARE NOT INCLUDED ON THE EXT MED HISTORY: 02-09-2020 HYDRALAZINE 25MG #120- ONLY USES PRN 06-09-2020 GLIMEPIRIDE 2MG #90/90DS 06-14-2020 LISINOPRIL 40MG #90/90DS 06-23-2020 CLONIDINE 0.2MG #90/30DS 06-29-2020 ELIQUID 2.5MG #60/30DS 06-29-2020 LORAZEPAM 0.5MG #30/30DS 07-06-2020 DIGOXIN 125MCG #90/90DS PT GETS SAMPLES OF TRADJENTA 5MG FROM DR. FISH OFFICE PT IS NOT CURRENTLY TAKING ANY STATIN MEDICATIONS
[2020-07-11] MEDS ORDERED: ADENOSINE 3 MG/1 ML (ADENOSCAN) 30ML VIAL IV ONE (10:20)
[2020-07-11] MEDS ORDERED: CLOPIDOGREL 300 MG (PLAVIX) TABLET PO ONE (10:45)
[2020-07-11] MEDS ORDERED: ASPIRIN 325 MG (5 GR) TABLET ONE (10:45)
[2020-07-11] MEDS ORDERED: PATIENT MAY USE OWN MEDS, ALL PO SCH (11:00)
[2020-07-11] MEDS ORDERED: GLIMEPIRIDE 2 MG (AMARYL) TAB PO PRN (11:00)
--- NOTE | 2020-07-11 11:08 | Cardiac Cath Report ---
Cardiac Cath Report Physician (s)/Wire Spring Relay Adjuster (s) Physician AJ CONKLIN MD Pre-Procedure Diagnosis Pre-Procedure Diagnosis: CAD, ventricular tachycardia Post-Procedure Note Procedure Start Date: Jul 11, 2020 Name of Procedure: Left heart catheterization Stent to the diagonal artery Findings/Procedure Note PROCEDURE NOTE: 84-year-old lady with history of coronary artery disease, has history of stenting to the right coronary artery, has been having syncope and ventricular tachycardia, I decided to proceed with cardiac catheterization possible PTCA. After explaining the procedure to the patient, all pros and cons were explained, all questions were answered. The patient signed the consent and then she was placed on the cardiac catheterization laboratory. Groin was prepped SL fashion local anesthesia was used. Sheath placed in the right radial artery, Cranks catheter was advanced to the left ventricular cavity, pressure was measured, left ventriculogram was done, pullback LV to aorta was done, advanced to the left coronary system and angiogram was done then turned to the right coronary system and angiogram was done. Patient has severe stenosis in the first diagonal artery I decided to proceed with Proteus intervention. Patient received a total of 6000 units of heparin, initially I would think about using FFR wire and EBU 3.5 guide advanced to the left system, after the injection the lesion appeared to be severe that does not require pressure measurement. I used the same wire adjusted through the diagonal artery and proceeded with primary stenting using 2.25 x 15 mm Leah stent expanded to 2.45 mm with excellent results. Angiogram showed good positioning with no complication. At the end of the procedure the sheath was removed. Closure device was used FINDINGS: Hemodynamics LV 102/19, end-diastolic pressure of 19 Aorta 96/42 mean of 59 ANATOMY: Left Main ostial 50-60 percent stenosis, nonobstructive disease Left Anterior Descending is moderate in size with some tortuosity no obstructive disease, first diagonal artery has severe proximal stenosis, successful primary stenting using 2.25 x 15 mm Leah stent expanded to 2.45 mm with excellent results Left Circumflex is moderate in size with nonobstructive disease Right Coronory Artery is dominant artery with patent stent in the midportion nonobstructive disease LV Gram was done showing normal left ventricular size and contraction. Estimated ejection fraction 60 percent CONCLUSION: 1. Severe first diagonal artery stenosis, successful primary stenting using 2.25 x 15 mm Leah stent expanded to 2.45 mm under 14 fabio with excellent r esults 2. Ostial left main coronary artery stenosis which appeared to be 50-60 percent, nonobstructive disease 3. Patent stent in the midright coronary artery 4. Normal left ventricular size and systolic function estimated ejection fraction 60 percent DISCUSSION AND RECOMMENDATION: Patient was loaded with aspirin and Plavix. Continue to monitor Anesthesia Type: Conscious Sedation Estimated blood loss (mL): 15 ml Contrast Amount: 140 ml Total Radiation Dose: 573 mGy Post-Procedure Diagnosis Post-operative diagnosis: Ventricular tachycardia Coronary artery disease Hypertension Hyperlipidemia AJ CONKLIN MD Jul 11, 2020 11:08 am
[2020-07-11] MEDS ORDERED: lisINopril 40 MG (PRINIVIL) TABLET PO SCH (12:00)
[2020-07-11] MEDS ORDERED: dilTIAZem120 MG (CARDIZEM CD) CAP PO SCH (12:00)
[2020-07-11] MEDS ORDERED: hydrALAZINE (APRESOLINE) 25 MG TAB PO PRN (13:37)
[2020-07-11] MEDS: cloNIDine 0.2 MG (CATAPRES) TAB PO SCH ×2 (14:06→20:37)
--- NOTE | 2020-07-11 15:15 | NUR ---
Pt is [employer]. 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
[2020-07-11] MEDS: NS IV 1000 ML 1,000 ML IV SCH ×2 (15:52→21:37)
--- NOTE | 2020-07-11 17:10 | Electrophysiology Consultation ---
HPI-Cardiology Cardiology Consultation: Date of Consultation 07/11/20 Date of Admission Attending Physician Cristiano Comer MD Admitting Physician Michaelle Rivas MD Consulting Physician Josefa YOUNG MD HPI: Time Seen by a Provider: 16:20 Chief Complaint: Syncope Cardiac electrophysiology consultation requested by Dr. Comer. This 84-year-old lady with history of coronary artery disease with previous history of RCA stenting. She also has a dual-chamber permanent pacemaker. Pacemaker interrogation showed 3 second run of nonsustained ventricular tachycardia. Apparently she had episode of syncope/near syncope around about the same time. The patient also has history of atrial fibrillation. Coronary angiography was performed by Dr. Comer on 07/11/2020 showed severe first diagonal artery stenosis requiring a drug-eluting stent. The patient is not an active smoker. Negative family history. Review of Systems-Cardiology Review of Systems Constitutional: As described under HPI; No As described under HPI, No no symptoms reported, No chills, No fever, No lightheadedness Eyes: No As described under HPI, No no symptoms reported, No blindness, No blur red vision, No contact lenses, No drainage, No decreased acuity, No foreign body sensation, No pain, No vision change Ears/Nose/Throat: No As described under HPI, No no symptoms reported, No chronic hearing loss, No ear discharge, No ear pain, No nasal drainage, No ulcerations Respiratory: No no symptoms reported; As described under HPI; No As described under HPI, No cough, No orthopnea, No shortness of breath, No SOB with excertion Cardiovascular: No no symptoms reported; As described under HPI; No As described under HPI, No chest pain, No edema, No irregular heart rate, No lightheadedness, No palpitations; syncope Gastrointestinal: No no symptoms reported, No As described under HPI, No abdomen distended, No abdominal pain, No blood streaked bowels, No constipation, No diarrhea, No nausea, No vomiting, No stool coloration changes Genitourinary: No As described under HPI, No burning, No dysuria, No discharge, No frequency, No flank pain, No hematuria, No urgency : Yes : No Skin: No rash, No skin related problems, No ulcerations Psychiatric/Neurological: No anxiety, No depression, No seizure, No focal weakness, No syncope Hematologic: No bleeding abnormalities KNM-[id number]-Kscwvh Hx Patient Social History Alcohol Use: Denies Use Recreational Drug Use: No Smoking Status: Never a Smoker 2nd Hand Smoke Exposure: No Recent Foreign Travel: No Immunizations Up To Date Tetanus Booster (TDap): Unknown Date of Influenza Vaccine: Sep 06, 2018 Past Medical History PMH As described under Assessment. Allergies and Home Medications Allergies Coded Allergies: Sulfa (Sulfonamide Antibiotics) (Verified Allergy, Mild, RASH, 05/23/19) codeine (Verified Allergy, Mild, NAUSEA, 03/25/18) Home Medications Apixaban 2.5 Mg Tablet, 2.5 MG PO BID, (Reported) Aspirin 81 Mg Tablet.dr, 81 MG PO DAILY Prescribed by: CRISTIANO COMER on 07/12/20817 Atorvastatin Calcium 10 Mg Tablet, 10 MG PO DAILY Prescribed by: CRISTIANO COMER on 07/12/20817 Clonidine HCl 0.2 Mg Tablet, 0.2 MG PO TID, (Reported) Clopidogrel Bisulfate 75 Mg Tablet, 75 MG PO DAILY Prescribed by: CRISTIANO COMER on 07/12/20817 Digoxin 125 Mcg Tablet, 125 MCG PO 1000, (Reported) Diltiazem HCl 120 Mg Cap.er.24h, 120 MG PO 1200, (Reported) Glimepiride 2 Mg Tablet, 2 MG PO DAILY, (Reported) Glimepiride 2 Mg Tablet, 2 MG PO 1700 PRN for HYPERGLYCEMIA, (Reported) Hydralazine HCl 25 Mg Tablet, 25 MG PO QID PRN for BP OVER 180, (Reported) Linagliptin 5 Mg Tablet, 5 MG PO DAILY, (Reported) Lisinopril 40 Mg Tablet, 40 MG PO 1200, (Reported) Lorazepam 0.5 Mg Tablet, 0.5 MG PO HS, (Reported) Metoprolol Succinate 100 Mg Tab.er.24h, 100 MG PO DAILY Prescribed by: SHAWN REINA on 07/12/20852 Metoprolol Succinate 50 Mg Tab.er.24h, 50 MG PO HS Prescribed by: SHAWN REINA on 07/12/20852 Prednisolone Acetate/Pf 5 Ml Drops.susp, 1 DROP OU Q48H, (Reported) Patient Home Medication List Home Medication List Reviewed: Yes Physical Exam-Cardiology Physical Exam Vital Signs/I&O 07/12/20 07/12/20 07/12/20 07/12/20 07:21 08:00 08:00 10:37 Temp 36.7 36.7 Pulse 62 69 69 Resp 18 18 B/P (MAP) 140/80 (100) 140/80 Pulse Ox 97 97 O2 Delivery Room Air Room Air Room Air Capillary Refill : Less Than 3 Seconds Constitutional: appears stated age, AAO x 3; No apparent distress; well- developed, well-nourished HEENT: PERRL; No discharge; hearing is well preserved, oral hygience is good; No ulceration, No xanthelasmas are seen Neck: No carotid bruit; carotid pulses are 2 + bilaterally Respiratory: chest is bilaterally symmetric, lungs clear to auscultation Cardiovascular: regular rate-rhythm, S1 and S2, systolic murmur Gastrointestinal: soft, audible bowel sounds; No spleenomegaly Rectal: deferred Extremities: normal range of motion, non-tender; No clubbing, No cyanosis; no lower extremity edema bilateral; No significant edema Neurologic/Psychiatric: no motor/sensory deficits, alert, normal mood/affect, oriented x 3, power is 5/5 both on sides Skin: normal color; No rash, No ulcerations Data Review Labs Laboratory Tests 07/12/20 03:24: White Blood Count 5.1, Red Blood Count 4.08L, Hemoglobin 12.6, Hematocrit 37, Mean Corpuscular Volume 91, Mean Corpuscular Hemoglobin 31, Mean Corpuscular Hemoglobin Concent 34, Red Cell Distribution Width 12.5, Platelet Count 213, Mean Platelet Volume 10.3, Sodium Level 137, Potassium Level 4.1, Chloride Level 106, Carbon Dioxide Level 24, Anion Gap 7, Blood Urea Nitrogen 14, Creatinine 0.93, Estimat Glomerular Filtration Rate 57, BUN/Creatinine Ratio 15, Glucose Level 175H, Calcium Level 8.8 Microbiology 07/11/20 MRSA Screen - Final, Complete MRSA not isolated A/P-Cardiology Assessment/Admission Diagnosis Syncope, atrial fibrillation, ventricular tachycardia, dual-chamber permanent pacemaker, severe CAD. Plan This is a elderly lady with history of dual-chamber permanent pacemaker. Interrogation showed nonsustained ventricular tachycardia for 3 seconds. This possible episode of syncope around that time. Coronary angiography by Dr. Comer shows patent RCA stent however severe diagonal stenosis treated with a drug- eluting stent. Severe CAD with nonsustained ventricular tachycardia could explain the symptoms. Normal ejection fraction. Advanced age. I discussed at length with the patient and do not recommend a defibrillator at this point in time. Increase metoprolol. Continue to watch to see if there is recurrence of ventricular tachycardia. Patient will continue metoprolol and Eliquis for atrial fibrillation. Normal device function. Thank you for your consultation. Please call me if you have any questions. Dereck Young MD, FACP, FACC, FSCAI, FHRS, CCDS Interventional Cardiology Cardiac Electrophysiology Vascular Medicine and Endovascular Interventions Josefa YOUNG MD Jul 11, 2020 17:10
[2020-07-11] MEDS ORDERED: LORazepam 0.5 MG (ATIVAN) TABLET PO SCH (21:00)
[2020-07-11] MEDS ORDERED: meTOprolol SUCCINATE 100 MG (TOPROL XL) TAB PO SCH (21:00)
[2020-07-12 03:08] VITALS: BP 148/81
[2020-07-12] MEDS: NS IV 1000 ML 1,000 ML IV SCH (03:53)
[2020-07-12 04:06] LABS: HEMOGLOBIN 12.6 G/DL (11.5-16.0); MEAN PLATELET VOLUME 10.3 FL (7.4-10.4); RED CELL DISTRIBUTION WIDTH 12.5 % (10.0-14.5); WHITE BLOOD COUNT 5.1 10^3/uL (4.3-11.0)
[2020-07-12 04:24] LABS: CALCIUM 8.8 MG/DL (8.5-10.1); CREATININE SERUM 0.93 MG/DL (0.60-1.30); POTASSIUM 4.1 MMOL/L (3.6-5.0)
[2020-07-12 08:00] VITALS: BP 140/80
[2020-07-12] MEDS ORDERED: ATOR10TA PO (08:18)
[2020-07-12] MEDS ORDERED: ASPI-983 PO (08:18)
[2020-07-12] MEDS ORDERED: CLOP75TA28 PO (08:18)
--- NOTE | 2020-07-12 08:19 | Discharge Inst-Post CATH ---
Discharge Inst-CATH/EP Problems Reviewed?: Yes Post Cardiac Cath/EP D/C Inst Follow Up/Plan Appointment with Dr. CONKLIN's office in 2-[address] Young's office <b>CARDIAC CATH/EP PROCEDURE DISCHARGE INSTRUCTIONS</b> ACTIVITY * Go Home directly and rest. * Limit activity of the leg (or wrist if it was used) for 7 days including aerobics, swimming, jogging, bicycling, etc. * Restrict stair-climbing for 7 days if possible, if not, climb up with your non-cath leg, then bring together on the same step. * Avoid lifting, pushing, pulling or excessive movement of the affected extremity for 7 days. * Customary sexual activity may be resumed after 2 days-use caution not to use a position that strains or causes pain to the affected extremity. * No driving for 24 hours. * NO SMOKING. * Avoid straining for bowel movements for 7 days. * Gentle walking on level ground is allowed. * Returning to work will depend on the type of procedure and the results. Your doctor will discuss this with you. CALL YOUR DOCTOR FOR ANY OF THE FOLLOWING: *If bleeding from the puncture site occurs- Apply gentle pressure to site with clean cloth and call your doctor or EMS. * If a knot or lump forms under the skin, increases in size, or causes pain. * If bruising appears to be worsening or moving further down your leg instead of disappearing. * Temperature above 101 F. CARE OF YOUR GROIN INCISION; * Bruising or purple discoloration of the skin near the puncture site is common. * You may shower only, no bathtub bathing for 5 days. Be careful to avoid slipp ing as your leg may feel stiff. * If a closure device was used on your femoral artery, please see the attached guide regarding care of the device and your leg. * Leave dressing on FOR 24 hours. CARE OF YOUR WRIST INCISION; * Bruising or purple discoloration of the skin near the puncture site is common. * You may shower. * DO NOT submerge wrist. * Leave dressing on FOR 24 hours. AJ CONKLIN MD Jul 12, 2020 08:19
[2020-07-12] MEDS: cloNIDine 0.2 MG (CATAPRES) TAB PO SCH (08:33)
[2020-07-12] MEDS ORDERED: MTP100TCR PO (08:53)
[2020-07-12] MEDS ORDERED: METO50TA7 PO (08:53)
--- NOTE | 2020-07-12 08:54 | Cardiology Progress Note ---
Subjective Date Seen by Provider: Jul 12, 2020 Time Seen by Provider: 08:52 Subjective/Events-last exam Patient was seen at bedside, feeling better, no new complaint Review of Systems General: No Chills, No Night Sweats, No Fatigue, No Malaise, No Appetite, No Other HEENT: No Head Aches, No Visual Changes, No Eye Pain, No Ear Pain, No Dysphasia, No Sinus Congestion, No Post Nasal Drip, No Sore Throat, No Other Pulmonary: No Dyspnea, No Cough, No Pleuritic Chest Pain, No Other Cardiovascular: No: Chest Pain, Palpitations, Orthopnea, Paroxysmal Noc. Dyspnea, Edema, Lt Headedness, Other Objective-Cardiology Exam Last Set of Vital Signs Vital Signs 07/12/20 08:00 Temp 36.7 Pulse 69 Resp 18 B/P (MAP) 140/80 (100) Pulse Ox 97 O2 Delivery Room Air Capillary Refill : Less Than 3 Seconds General: Alert, Oriented X3, Cooperative HEENT: Atraumatic, PERRLA Neck: Supple, No JVD, No Thyromegaly Lungs: Clear to Auscultation, Normal Air Movement Heart: Regular Rate, Normal S1, Normal S2, No Murmurs Abdomen: Normal Bowel Sounds, Soft, No Tenderness, No Hepatosplenomegaly, No Masses Extremities: No Clubbing, No Cyanosis, No Edema, Normal Pulses, No Tenderness/Swelling Skin: No Rashes, No Breakdown, No Significant Lesion Neuro: Normal Gait, Normal Speech, Strength at 5/5 X4 Ext, Normal Tone, Sensation Intact Psych/Mental Status: Mental Status NL, Mood NL Results Lab Laboratory Tests 07/12/20 03:24 A/P-Cardiology Admission Diagnosis Coronary artery disease Nonsustained ventricular tachycardia Paroxysmal atrial fibrillation Hypertension Hyperlipidemia Assessment/Plan Coronary artery disease status post stenting to the diagonal artery with excellent results. History of stent to the right coronary artery. Nonsustained ventricular tachycardia, seen by Dr. Young, recommended increasing Toprol Paroxysmal atrial fibrillation maintained on oral anticoagulation, had significantly increased risk of bleeding with multiple bleeding on the previous procedure, I will use aspirin and Plavix for a week then restart oral anticoagulation Hypertension, monitor blood pressure after increasing Toprol Hyperlipidemia recommended starting Lipitor Diabetes mellitus, managed by primary care physician AJ CONKLIN MD Jul 12, 2020 8:54 am
[2020-07-12] MEDS ORDERED: LINAGLIPTIN (TRADJENTA) 5 MG TABLET PO SCH (09:00)
[2020-07-12] MEDS ORDERED: CLOPIDOGREL 75 MG (PLAVIX) TABLET PO SCH (09:00)
[2020-07-12] MEDS ORDERED: ASPIRIN E.C. 81 MG (ECOTRIN) TAB PO SCH (09:00)
[2020-07-12] MEDS ORDERED: GLIMEPIRIDE 2 MG (AMARYL) TAB PO SCH (09:00)
--- NOTE | 2020-07-12 09:34 | NUR ---
provided prayer and Communion.
--- NOTE | 2020-07-12 09:50 | NUR ---
THIS NURSE EDUCATED PT AND DAUGHTER ON DISCHARGE INSTRUCTIONS AND HOME MEDICATIONS. PT AND DAUGHTER STATE UNDERSTANDING.
[2020-07-12] MEDS ORDERED: DIGOXIN 0.125 MG (LANOXIN) TAB PO SCH (10:00)
[2020-07-12 10:37] VITALS: BP 140/80
--- NOTE | 2020-07-12 18:07 | Cardiology Progress Note ---
Cardiology SOAP Progress Note Subjective: No cardiac complaints. Objective: I&O/Vital Signs 07/12/20 07/12/20 07/12/20 07/12/20 07:21 08:00 08:00 10:37 Temp 36.7 36.7 Pulse 62 69 69 Resp 18 18 B/P (MAP) 140/80 (100) 140/80 Pulse Ox 97 97 O2 Delivery Room Air Room Air Room Air Weight (Pounds): 107 Weight (Ounces): 1.0 Weight (Calculated Kilograms): 48.326190 Constitutional: appears stated age, AAO x 3; No apparent distress; well- developed, well-nourished Respiratory: chest is bilaterally symmetric, lungs clear to auscultation Cardiovascular: regular rate-rhythm, S1 and S2, systolic murmur Gastrointestional: soft, audible bowel sounds; No spleenomegaly Extremities: normal range of motion, non-tender; No clubbing, No cyanosis; no lower extremity edema bilateral; No significant edema Neurologic/Psychiatric: no motor/sensory deficits, alert, normal mood/affect, oriented x 3, power is 5/5 both on sides Skin: normal color; No rash, No ulcerations Results/Procedures: Labs Laboratory Tests 07/12/20 03:24: White Blood Count 5.1, Red Blood Count 4.08L, Hemoglobin 12.6, Hematocrit 37, Mean Corpuscular Volume 91, Mean Corpuscular Hemoglobin 31, Mean Corpuscular Hem oglobin Concent 34, Red Cell Distribution Width 12.5, Platelet Count 213, Mean Platelet Volume 10.3, Sodium Level 137, Potassium Level 4.1, Chloride Level 106, Carbon Dioxide Level 24, Anion Gap 7, Blood Urea Nitrogen 14, Creatinine 0.93, Estimat Glomerular Filtration Rate 57, BUN/Creatinine Ratio 15, Glucose Level 175H, Calcium Level 8.8 Microbiology 07/11/20 MRSA Screen - Final, Complete MRSA not isolated A/P: Assessment/Dx: Syncope, atrial fibrillation, ventricular tachycardia, dual-chamber permanent pacemaker, severe CAD. Plan: This is a elderly lady with history of dual-chamber permanent pacemaker. Interrogation showed nonsustained ventricular tachycardia for 3 seconds. This possible episode of syncope around that time. Coronary angiography by Dr. Comer shows patent RCA stent however severe diagonal stenosis treated with a drug- eluting stent. Severe CAD with nonsustained ventricular tachycardia could explain the symptoms. Normal ejection fraction. Advanced age. I discussed at length with the patient and do not recommend a defibrillator at this point in time. She is on 100 mg of metoprolol. We will increase 100 mg of metoprolol in the morning and 50 mg at night. Continue to watch to see if there is recurrence of ventricular tachycardia. Patient will continue metoprolol and Eliquis for atrial fibrillation. Normal device function. Thank you for your consultation. Please call me if you have any questions. Dereck Young MD, FACP, FACC, FSCAI, FHRS, CCDS Interventional Cardiology Cardiac Electrophysiology Vascular Medicine and Endovascular Interventions Josefa YOUNG MD Jul 12, 2020 18:07
== END 2020-07-12 10:15 | disposition home or self-care (01) ==
LOC: CATH 07:47 → CSD 11:51 → CATH 07-12 10:15
PROVIDERS: ATTEND Internal Medicine Cardiovascular Disease
DX: I25.10 Atherosclerotic heart disease of native coronary artery without angina pectoris (principal); I47.2 Ventricular tachycardia; I10 Essential (primary) hypertension; E78.5 Hyperlipidemia, unspecified; I48.0 Paroxysmal atrial fibrillation; I49.5 Sick sinus syndrome; I27.20 Pulmonary hypertension, unspecified; I70.1 Atherosclerosis of renal artery; E11.9 Type 2 diabetes mellitus without complications; Z79.01 Long term (current) use of anticoagulants; Z79.899 Other long term (current) drug therapy; Z88.2 Allergy status to sulfonamides; Z88.5 Allergy status to narcotic agent; Z82.3 Family history of stroke
CPT/HCPCS: 71045; 80048; 80053; 80061; 81000; 85027 ×2; 85610; 85730; 87081; 93005; 93458; C1769 ×2; C1874; C1887; C1894; C9600; 36415

== ENCOUNTER → 2021-04-22 | Outpatient (CLI) | payer MEDICARE ==
[~2021-04-22] MED LIST changes: +ASPI-1238 PO; -ASPI-983 PO; +ATOR10TA PO; +CLN.1T PO; +CLN.2T PO; -CLON0.1T PO; -CLON0.2T PO; +GLIM2TAB4 PO; +HYDR-3923 PO; +LINA5TAB PO; -LISI40TA PO; +LISI40TA9 PO; +LORA-404 PO; +METO50TA7 PO; +PRED5DRO24 OU
== END ==
LOC: CARD 08:18
PROVIDERS: ATTEND Internal Medicine Cardiovascular Disease
DX: I25.10 Atherosclerotic heart disease of native coronary artery without angina pectoris (principal); I11.9 Hypertensive heart disease without heart failure; I08.3 Combined rheumatic disorders of mitral, aortic and tricuspid valves
CPT/HCPCS: 93306